=== PATIENT | female | born 1990 | race Caucasian/White ===

== ENCOUNTER 2017-01-03 10:51 | Outpatient (CLI) | payer OTHER | END 2017-01-03 10:52 | disposition home or self-care (01) | DX: E04.1 Nontoxic single thyroid nodule (principal); R63.1 Polydipsia ==

== ENCOUNTER 2019-07-14 09:52 | Emergency (ER) | payer OTHER ==
[2019-07-14 10:22] LABS: BILIRUBIN,URINE NEGATIVE (NEGATIVE); GLUCOSE, URINE (UA) NEGATIVE (NEGATIVE); KETONES,URINE (UA) TRACE mg/dL (NEGATIVE); LEUKOCYTE ESTERASE, URINE NEGATIVE (NEGATIVE); NITRITE,URINE NEGATIVE (NEGATIVE); OCCULT BLOOD,URINE TRACE-LYSE (NEGATIVE); PROTEIN,URINE NEGATIVE (NEGATIVE); UROBILINOGEN,URINE 0.2 (NORMAL) E.U./dL (NORMAL)
[2019-07-14 10:25] LABS: CLARITY,URINE CLEAR (CLEAR); HCG UR QUAL NEGATIVE
[2019-07-14 11:02] LABS: BASOPHILS # (AUTO) 0.1 10^3/uL (0.0-0.1); BASOPHILS % (AUTO) 0.3 %; EOSINOPHILS % (AUTO) 0.1 %; HGB - HEMOGLOBIN 13.1 g/dL (12.0-16.0); LYMPHOCYTES # (AUTO) 0.7 10^3/uL (1.5-3.5); LYMPHOCYTES % (AUTO) 3.7 %; MEAN CORPUSCULAR HEMOGLOBIN 29.1 pg (27.0-31.0); MEAN CORPUSCULAR HGB CONC 33.6 g/dL (32.0-36.0); MEAN CORPUSCULAR VOLUME 86.7 fL (81.0-99.0); MEAN PLATELET VOLUME 9.9 fL (7.9-10.8); MONOCYTES # (AUTO) 0.6 10^3/uL (0.0-1.0); MONOCYTES % (AUTO) 3.2 %; NEUTROPHILS # (AUTO) 18.3 10^3/uL (1.5-6.6); NEUTROPHILS % (AUTO) 91.9 %; PLT - PLATELET COUNT 208 10^3/uL (130-450); RED CELL DISTRIBUTION WIDTH 12.2 % (12.0-15.0); WHITE BLOOD COUNT 19.8 x10^3/uL (4.8-10.8)
[2019-07-14 11:16] LABS: ALBUMIN 4.8 g/dL (3.2-5.5); ALBUMIN/GLOBULIN RATIO 1.5 (1.0-2.2); BILIRUBIN,TOTAL 1.2 mg/dL (0.2-1.0); CALCIUM 9.6 mg/dL (8.5-10.3); CREATININE 1.1 mg/dL (0.4-1.0); TOTAL PROTEIN 8.1 g/dL (6.7-8.2)
--- NOTE | 2019-07-14 11:28 | ED Physician Documentation ---
PD HPI ABD PAIN - Stated complaint Stated Complaint: SIDE PX/VOMITING - Chief complaint Chief Complaint: Abd Pain - History obtained from History obtained from: Patient - History of Present Illness Timing - onset: Last night Timing - duration: Hours Timing - details: Abrupt onset, Still present Quality: Cramping, Aching, Pain Location: Epigastric, Periumbilical Radiation: Upper back. No: Chest Improved by: No: Vomiting Worsened by: Eating (tried to take water, with worse symptoms) Associated symptoms: Nausea, Vomiting, Diarrhea (loose but not diarrhea). No: Fever, Dysuria, Hematuria, Chest pain Similar symptoms before: Has not had sx before Recently seen: Not recently seen Review of Systems Constitutional: reports: Myalgias. denies: Fever, Chills Nose: denies: Rhinorrhea / runny nose, Congestion Throat: denies: Sore throat Respiratory: denies: Cough GI: reports: Abdominal Pain, Nausea, Vomiting (multiple times), Diarrhea (loose but not diarrhea). denies: Abdominal Swelling, Constipation, Hematemesis, Bloody / black stool : denies: Dysuria, Frequency Musculoskeletal: denies: Neck pain, Back pain Neurologic: reports: Generalized weakness. denies: Focal weakness, Numbness, Altered mental status, Headache PD PAST MEDICAL HISTORY - Past Medical History Cardiovascular: None Respiratory: None Neuro: None Endocrine/Autoimmune: None - Past Surgical History Past Surgical History: Yes Ortho: Knee replacement - Present Medications Home Medications: Ambulatory Orders Medication Instructions Recorded Confirmed Hydrocodone/Acetaminophen [[place] 1 each PO Q6H PRN #12 tablet 07/14/19 5-325 Tablet] Ondansetron Odt [Zofran] 4 mg TL Q6H PRN #10 tablet 07/14/19 - Allergies Allergies/Adverse Reactions: Allergies Allergy/AdvReac Type Severity Reaction Status Date / Time No Known Drug Allergies Allergy Verified 07/14/19 09:54 - Social History Does the pt smoke?: No Smoking Status: Never smoker Does the pt drink ETOH?: No Does the pt have substance abuse?: No - POLST Patient has POLST: No PD ED PE NORMAL - Vitals Vital signs reviewed: Yes - General General: Alert and oriented X 3, Well developed/nourished, Other (appears very uncomfortable, with active vomiting. Pain mid to upper abd. ) - HEENT HEENT: Moist mucous membranes, Pharynx benign - Neck Neck: Supple, no meningeal sign, No adenopathy - Cardiac Cardiac: RRR, No murmur - Respiratory Respiratory: Clear bilaterally - Abdomen Abdomen: Soft, Non distended, No organomegaly, Other (tender epigastric to mid abd with guarding and some percussion tenderness. Bowel sounds diminished. ). No: Normal bowel sounds - Female Female : Deferred - Rectal Rectal: Deferred - Back Back: No CVA TTP - Derm Derm: Warm and dry. No: Normal color (pale) - Extremities Extremities: No tenderness to palpate, Normal ROM s pain - Neuro Neuro: Alert and oriented X 3, No motor deficit, Normal speech Eye Opening: Spontaneous Motor: Obeys Commands Verbal: Oriented GCS Score: 15 Results - Vitals Vitals: Vital Signs - 24 hr 07/14/19 07/14/19 09:55 13:23 Temperature 37.8 C H Heart Rate 94 87 Respiratory 15 16 Rate Blood Pressure 102/66 108/62 O2 Saturation 100 98 Oxygen O2 Source Room air - Labs Labs: Laboratory Tests 07/14/19 07/14/19 07/14/19 10:15 10:15 10:55 WBC 19.8 H RBC 4.50 Hgb 13.1 Hct 39.0 MCV 86.7 MCH 29.1 MCHC 33.6 RDW 12.2 Plt Count 208 MPV 9.9 Neut # (Auto) 18.3 H Lymph # (Auto) 0.7 L [place] # (Auto) 0.6 Eos # (Auto) 0.0 Baso # (Auto) 0.1 Absolute Nucleated RBC 0.00 Nucleated RBC % 0.0 Sodium Potassium Chloride Carbon Dioxide Anion Gap BUN Creatinine Estimated GFR (MDRD) Glucose Lactic Acid Calcium Total Bilirubin AST ALT Alkaline Phosphatase Total Protein Albumin Globulin Albumin/Globulin Ratio Lipase Urine Color YELLOW Urine Clarity CLEAR Urine pH 6.0 Ur Specific [place] 1.010 Urine Protein NEGATIVE Urine Glucose (UA) NEGATIVE Urine Ketones TRACE Urine Occult Blood TRACE-LYSE Urine Nitrite NEGATIVE Urine Bilirubin NEGATIVE Urine Urobilinogen 0.2 (NORMAL) Ur Leukocyte Esterase NEGATIVE Ur Microscopic Review NOT INDICATED Urine Culture Comments NOT INDICATED Urine HCG, Qual NEGATIVE Urine Opiates Screen NEGATIVE Ur Oxycodone Screen NEGATIVE Urine Methadone Screen NEGATIVE Ur Propoxyphene Screen NEGATIVE Ur Barbiturates Screen NEGATIVE Ur Tricyclics Screen NEGATIVE Ur Phencyclidine Scrn NEGATIVE Ur Amphetamine Screen NEGATIVE U Methamphetamines Scrn NEGATIVE U Benzodiazepines Scrn NEGATIVE Urine Cocaine Screen NEGATIVE U Cannabinoids Screen NEGATIVE 07/14/19 07/14/19 10:55 12:20 WBC RBC Hgb Hct MCV MCH MCHC RDW Plt Count MPV Neut # (Auto) Lymph # (Auto) [place] # (Auto) Eos # (Auto) Baso # (Auto) Absolute Nucleated RBC Nucleated RBC % Sodium 136 Potassium 3.4 L Chloride 101 Carbon Dioxide 24 Anion Gap 11.0 BUN 16 Creatinine 1.1 H Estimated GFR (MDRD) 60 L Glucose 129 H Lactic Acid 1.3 Calcium 9.6 Total Bilirubin 1.2 H AST 19 ALT 16 Alkaline Phosphatase 48 Total Protein 8.1 Albumin 4.8 Globulin 3.3 Albumin/Globulin Ratio 1.5 Lipase 25 Urine Color Urine Clarity Urine pH Ur Specific [place] Urine Protein Urine Glucose (UA) Urine Ketones Urine Occult Blood Urine Nitrite Urine Bilirubin Urine Urobilinogen Ur Leukocyte Esterase Ur Microscopic Review Urine Culture Comments Urine HCG, Qual Urine Opiates Screen Ur Oxycodone Screen Urine Methadone Screen Ur Propoxyphene Screen Ur Barbiturates Screen Ur Tricyclics Screen Ur Phencyclidine Scrn Ur Amphetamine Screen U Methamphetamines Scrn U Benzodiazepines Scrn Urine Cocaine Screen U Cannabinoids Screen - Rads (name of study) abd/pelvic CT Radiology: Prelim report reviewed ( CT without acute process. ), See rad report PD MEDICAL DECISION MAKING - ED course Complexity details: reviewed results (seems acute abd with mid abd tender and vomiting. No hernia felt. Got CT to eval for acute process.), re-evaluated patient (improved with IV fluids and meds. ), considered differential (consider viral GE, food poisoning, but with such pain and vomiting, could also consider obstruction, intusscesception, hernia, etc. ) Departure - Departure Disposition: 01 Home, Self Care Clinical Impression: Nausea and vomiting Qualifiers: Vomiting type: unspecified Vomiting Intractability: intractable Qualified Code(s): R11.2 - Nausea with vomiting, unspecified Abdominal pain Qualifiers: Abdominal location: generalized Qualified Code(s): R10.84 - Generalized abdominal pain Condition: Stable Record reviewed to determine appropriate education?: Yes Instructions: ED Nausea Vomiting Follow-Up: Cristina Pedersen DO [Primary Care Provider] - Prescriptions: Hydrocodone/Acetaminophen [[place] 5-325 Tablet] 1 each PO Q6H PRN #12 tablet PRN Reason: Pain Ondansetron Odt [Zofran] 4 mg TL Q6H PRN #10 tablet PRN Reason: Nausea / Vomiting Comments: No signs of acute focused infection on your CT scan. I presume this is then more of a viral gastroenteritis at this point. Small frequent fluids. Ondansetron if needed for nausea. Add pain medicine if needed for pains and diarrhea. [place] food initially today and progress as tolerated. Off work today and possibly tomorrow. Recheck if not improved over the next couple of days. Forms: Activity restrictions Discharge Date/Time: 07/14/19 14:11
[2019-07-14] MEDS ORDERED: SODIUM CHLORIDE 0.9% 1,000 ML IV ONE ×2 (11:35→11:36)
[2019-07-14] MEDS ORDERED: ONDANSETRON 4 MG/2 ML VIAL IVP STA (11:35)
[2019-07-14] MEDS ORDERED: HYDROmorphone 1 MG/ML CARPUJECT IVP STA (11:35)
[2019-07-14] MEDS ORDERED: IOVERSOL 320 100 ML VIAL IVP ONE ×2 (11:49→16:07)
[2019-07-14 11:55] LABS: MUDS CUTOFF CONCENTRATIONS CUTOFF CONC BELOW:
--- NOTE | 2019-07-14 12:16 | CT Report ---
Reason: mid abd pain and vomiting since last evening Procedure Date: 07/14/2019 Accession Number: [id number] / [id number] Procedure: CT - Abdomen/Pelvis W CPT Code: FULL RESULT: EXAM: CT ABDOMEN AND PELVIS EXAM DATE: 07/14/2019 12:01 PM. CLINICAL HISTORY: Mid abd pain and vomiting since last evening. COMPARISONS: ABDOMEN/PELVIS W/O 01/26/2014 11:58 AM. TECHNIQUE: Routine helical CT imaging was performed through the abdomen and pelvis. IV contrast: OPTI 320 100ML. Enteric contrast: No. Reconstructions: Coronal and sagittal. In accordance with CT protocol optimization, one or more of the following dose reduction techniques were utilized for this exam: automated exposure control, adjustment of mA and/or KV based on patient size, or use of iterative reconstructive technique. FINDINGS: Lung Bases: Unremarkable. Liver: Normal. No masses. Gallbladder/Bile Ducts: Unremarkable. Spleen: Normal. Pancreas: Normal. Adrenal Glands: Normal. Kidneys: Normal. No masses or hydronephrosis. Peritoneal Cavity/Bowel: Trace physiologic free fluid in cul-de-sac. No free air or adenopathy. No masses or acute inflammatory process. The appendix is well visualized and normal. Pelvic Organs: Normal. The bladder and visualized pelvic organs are within normal limits. Dominant 1.4 cm right ovarian follicle. Vasculature: No aneurysms or other significant abnormality. Bones: No significant abnormality. Other: None. IMPRESSION: Normal abdomen and pelvis CT. RADIA
[2019-07-14 12:17] LABS: AMPHETAMINE SCREEN,URINE NEGATIVE (NEGATIVE); BENZODIAZEPINES SCREEN, URINE NEGATIVE (NEGATIVE); COCAINE SCREEN URINE NEGATIVE (NEGATIVE); METHADONE SCREEN, URINE NEGATIVE (NEGATIVE); METHAMPHETAMINES SCREEN, URINE NEGATIVE (NEGATIVE); OPIATE SCREEN, URINE NEGATIVE (NEGATIVE); OXYCODONE SCREEN, URINE NEGATIVE (NEGATIVE); PROPOXYPHENE SCREEN, URINE NEGATIVE (NEGATIVE); TRICYCLIC ANTIDEPRESSANT,URINE NEGATIVE (NEGATIVE)
[2019-07-14] MEDS ORDERED: MAG HYDROX/AL HYDROX/SIMETH 30 ML UDC PO STA (13:06)
[2019-07-14] MEDS ORDERED: FAMOTIDINE 20 MG/2 ML VIAL IVP STA (13:07)
[2019-07-14 13:24] VITALS: BP 108/62
== END 2019-07-14 14:11 | disposition home or self-care (01) ==
LOC: ED 09:52
DX: R10.84 Generalized abdominal pain (principal); R11.2 Nausea with vomiting, unspecified; R53.1 Weakness
CPT/HCPCS: 36415; 74177; 80053; 81003; 81025; 83605; 83690; 85025; 96361; 96374; 96375; 99283; 99284; A9270; J1170; Q9967; 80306; 81001; 87086

== ENCOUNTER 2019-07-15 18:39 | Emergency (ER) | payer OTHER ==
[2019-07-15] MEDS ORDERED: METOCLOPRAMIDE 10 MG/2 ML VIAL IVP STA (18:50)
[2019-07-15] MEDS ORDERED: diphenhydrAMINE INJ 50 MG/ML VIAL IVP STA (18:50)
[2019-07-15] MEDS ORDERED: SODIUM CHLORIDE 0.9% 1,000 ML IV ONE (18:50)
--- NOTE | 2019-07-15 18:53 | ED Physician Documentation ---
History of Present Illness - Stated complaint Stated Complaint: VOMITING - History obtained from History obtained from: Patient, Family () - History of Present Illness Timing: Other (Starting 2 days ago she is had central nonradiating abdominal pain associated with vomiting. Pretty normal bowel movements per her. She was seen here yesterday. She had labs notable for white count of 19,000 ovarian follicle but otherwise negative with IV contrast. She was sent home with hydrocodone and Zofran. Since then she continues to vomit and have abdominal pain, she is had a gradual onset severe headache associated with light and sound sensitivity. She has no history of migraines. No sick contacts. 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.) Review of Systems Ten Systems: 10 systems reviewed and negative Constitutional: denies: Fever, Chills, Myalgias, Fatigue Nose: denies: Rhinorrhea / runny nose, Congestion Cardiac: denies: Chest pain / pressure, Palpitations Respiratory: denies: Dyspnea, Cough PD PAST MEDICAL HISTORY - Past Medical History Cardiovascular: None Respiratory: None Neuro: None Endocrine/Autoimmune: None - Past Surgical History Past Surgical History: Yes Ortho: Knee replacement - Present Medications Home Medications: Ambulatory Orders Medication Instructions Recorded Confirmed Hydrocodone/Acetaminophen [[place] 1 each PO Q6H PRN #12 tablet 07/14/19 5-325 Tablet] Ondansetron Odt [Zofran] 4 mg TL Q6H PRN #10 tablet 07/14/19 - Allergies Allergies/Adverse Reactions: Allergies Allergy/AdvReac Type Severity Reaction Status Date / Time No Known Drug Allergies Allergy Verified 07/14/19 09:54 - Social History Does the pt smoke?: No Smoking Status: Never smoker Does the pt drink ETOH?: No Does the pt have substance abuse?: No - POLST Patient has POLST: No PD ED PE NORMAL - Vitals Vital signs reviewed: Yes - General General: Alert and oriented X 3, Other (She appears uncomfortable and is crying) - HEENT HEENT: PERRL, EOMI - Neck Neck: Supple, no meningeal sign, No bony TTP - Cardiac Cardiac: RRR, No murmur - Respiratory Respiratory: No respiratory distress, Clear bilaterally - Abdomen Abdomen: Soft, Non tender - Neuro Neuro: Alert and oriented X 3, No motor deficit, No sensory deficit, Normal speech Eye Opening: Spontaneous Motor: Obeys Commands Verbal: Oriented GCS Score: 15 - Psych Psych: Normal mood, Normal affect Results - Vitals Vitals: Vital Signs - 24 hr 07/15/19 07/15/19 18:40 18:59 Temperature 36.4 C L Heart Rate 64 68 Respiratory 18 18 Rate Blood Pressure 116/76 110/70 O2 Saturation 100 100 Oxygen O2 Source Room air - Labs Labs: Laboratory Tests 07/15/19 07/15/19 19:15 19:15 WBC 17.1 H RBC 4.04 L Hgb 11.8 L Hct 35.0 L MCV 86.6 MCH 29.2 MCHC 33.7 RDW 12.4 Plt Count 184 MPV 10.1 Neut # (Auto) 14.6 H Lymph # (Auto) 1.4 L [place] # (Auto) 0.8 Eos # (Auto) 0.0 Baso # (Auto) 0.1 Absolute Nucleated RBC 0.00 Nucleated RBC % 0.0 Sodium 135 Potassium 3.3 L Chloride 99 L Carbon Dioxide 24 Anion Gap 12.0 BUN 14 Creatinine 1.1 H Estimated GFR (MDRD) 60 L Glucose 98 Calcium 9.1 Total Bilirubin 0.7 AST 19 ALT 16 Alkaline Phosphatase 47 Total Protein 7.1 Albumin 3.9 Globulin 3.2 Albumin/Globulin Ratio 1.2 Lipase 25 PD MEDICAL DECISION MAKING - ED course ED course: This is a young lady with abdominal pain and vomiting. Work-up yesterday was negative except for leukocytosis which is improved but not completely better today. Benign examination both on initial evaluation and on recheck at 9 PM she was symptom-free and no more headache. She was nontender and had passed p.o. challenge. Close watchful waiting was advised. Departure - Departure Disposition: 01 Home, Self Care Clinical Impression: Abdominal pain Qualifiers: Abdominal location: epigastric Qualified Code(s): R10.13 - Epigastric pain Condition: Good Record reviewed to determine appropriate education?: Yes Instructions: Abdominal Pain Comments: Return in 24 hours if not better, anytime for new or worsening symptoms. Return immediately if you run a fever or have severe pain.
[2019-07-15 19:27] LABS: BASOPHILS # (AUTO) 0.1 10^3/uL (0.0-0.1); BASOPHILS % (AUTO) 0.3 %; EOSINOPHILS % (AUTO) 0.1 %; HGB - HEMOGLOBIN 11.8 g/dL (12.0-16.0); LYMPHOCYTES # (AUTO) 1.4 10^3/uL (1.5-3.5); MEAN CORPUSCULAR HEMOGLOBIN 29.2 pg (27.0-31.0); MEAN CORPUSCULAR HGB CONC 33.7 g/dL (32.0-36.0); MEAN CORPUSCULAR VOLUME 86.6 fL (81.0-99.0); MEAN PLATELET VOLUME 10.1 fL (7.9-10.8); MONOCYTES # (AUTO) 0.8 10^3/uL (0.0-1.0); MONOCYTES % (AUTO) 4.8 %; NEUTROPHILS # (AUTO) 14.6 10^3/uL (1.5-6.6); NEUTROPHILS % (AUTO) 85.9 %; PLT - PLATELET COUNT 184 10^3/uL (130-450); RED BLOOD COUNT 4.04 10^6/uL (4.20-5.40); RED CELL DISTRIBUTION WIDTH 12.4 % (12.0-15.0); WHITE BLOOD COUNT 17.1 x10^3/uL (4.8-10.8)
[2019-07-15] MEDS ORDERED: ONDANSETRON 4 MG/2 ML VIAL IVP STA (19:27)
[2019-07-15 19:50] LABS: ALBUMIN 3.9 g/dL (3.2-5.5); ALBUMIN/GLOBULIN RATIO 1.2 (1.0-2.2); BILIRUBIN,TOTAL 0.7 mg/dL (0.2-1.0); CALCIUM 9.1 mg/dL (8.5-10.3); CREATININE 1.1 mg/dL (0.4-1.0); TOTAL PROTEIN 7.1 g/dL (6.7-8.2)
[2019-07-15 21:17] VITALS: BP 123/82
== END 2019-07-15 21:30 | disposition home or self-care (01) ==
LOC: ED 18:39
DX: R10.13 Epigastric pain (principal); R11.10 Vomiting, unspecified; R51 Headache; D72.829 Elevated white blood cell count, unspecified
CPT/HCPCS: 36415; 80053; 83690; 85025; 96374; 96375; 99283; 99284; J1200; J2765

== ENCOUNTER 2019-08-11 11:25 | Emergency (ER) | payer OTHER ==
--- NOTE | 2019-08-11 11:55 | ED Physician Documentation ---
History of Present Illness - Stated complaint Stated Complaint: VOMITING - Chief complaint Chief Complaint: Abd Pain - Additonal information Additional information: This is a 29-year-old female with history of UTIs who presents with vomiting for 2 days. Patient states that she is had some diffuse and mild abdominal discomfort, and she is had multiple episodes of vomiting unable to hold any down for several days. This happened in the past and she is been variously told that she had a UTI, though they could not figure out what was going on, was may be related to a migraine. She typically does not get headaches, and states that she only has a mild on right now. 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 : Chronic bladder infection HEENT: None Psych: Anxiety Musculoskeletal: None Derm: None - Past Surgical History Past Surgical History: Yes Ortho: Knee replacement - Present Medications Home Medications: Ambulatory Orders Medication Instructions Recorded Confirmed Hydrocodone/Acetaminophen [[place] 1 each PO Q6H PRN #12 tablet 07/14/19 5-325 Tablet] Ondansetron Odt [Zofran] 4 mg TL Q6H PRN #10 tablet 07/14/19 Ondansetron Odt [Zofran] 4 mg TL Q6H PRN #10 tablet 08/11/19 - Allergies Allergies/Adverse Reactions: Allergies Allergy/AdvReac Type Severity Reaction Status Date / Time No Known Drug Allergies Allergy Verified 08/11/19 11:31 - Social History Does the pt smoke?: No Smoking Status: Never smoker Does the pt drink ETOH?: No Does the pt have substance abuse?: No - Immunizations Immunizations are current?: Yes - POLST Patient has POLST: No PD ED PE NORMAL - Vitals Vital signs reviewed: Yes - General General: Alert and oriented X 3, No acute distress - HEENT HEENT: PERRL - Neck Neck: Supple, no meningeal sign - Cardiac Cardiac: RRR, No murmur - Respiratory Respiratory: Clear bilaterally - Abdomen Abdomen: Normal bowel sounds, Soft, Non tender, Non distended - Derm Derm: Warm and dry - Extremities Extremities: No deformity - Neuro Neuro: Alert and oriented X 3 - Psych Psych: Normal mood, Normal affect Results - Vitals Vitals: Vital Signs - 24 hr 08/11/19 08/11/19 11:29 11:46 Temperature 37.1 C 37.8 C H Heart Rate 105 H 96 Respiratory 20 20 Rate Blood Pressure 121/77 117/71 O2 Saturation 97 98 Oxygen O2 Source Room air - Labs Labs: Laboratory Tests 08/11/19 08/11/19 08/11/19 12:10 12:20 12:20 WBC 10.4 RBC 3.98 L Hgb 11.8 L Hct 34.5 L MCV 86.7 MCH 29.6 MCHC 34.2 RDW 12.8 Plt Count 150 MPV 9.7 Neut # (Auto) 7.6 H Lymph # (Auto) 1.7 [place] # (Auto) 0.8 Eos # (Auto) 0.2 Baso # (Auto) 0.0 Absolute Nucleated RBC 0.00 Nucleated RBC % 0.0 Sodium 132 L Potassium 3.3 L Chloride 97 L Carbon Dioxide 22 Anion Gap 13.0 BUN 13 Creatinine 1.0 Estimated GFR (MDRD) 67 L Glucose 90 Calcium 8.8 Total Bilirubin 1.0 AST 16 ALT 13 Alkaline Phosphatase 47 Total Protein 7.7 Albumin 4.1 Globulin 3.6 Albumin/Globulin Ratio 1.1 Lipase 26 Urine Color YELLOW Urine Clarity HAZY Urine pH 6.0 Ur Specific [place] 1.025 Urine Protein 30 H Urine Glucose (UA) NEGATIVE Urine Ketones >=80 H Urine Occult Blood MODERATE H Urine Nitrite NEGATIVE Urine Bilirubin NEGATIVE Urine Urobilinogen 0.2 (NORMAL) Ur Leukocyte Esterase NEGATIVE Urine RBC 6-10 H Urine WBC 0-3 Ur Squamous Epith Cells MANY Squamous H Urine Bacteria Few Ur Microscopic Review INDICATED Urine Culture Comments NOT INDICATED Urine HCG, Qual NEGATIVE PD MEDICAL DECISION MAKING - ED course Complexity details: considered differential (Urinary tract infection, pyelonephritis, electolyte abnormality, dehydration, cannabinoid hyperemesis syndrome, gastritis, pancreatitis) ED course: Patient is nontoxic-appearing on arrival. Labs are concerning for dehydration with hypochloremia, hyponatremia, and ketones in urine. There are no sign of urinary tract infection. HCG negative. Lipase is negative. Patient has mild hypokalemia, this is repleted with a liter of lactated Ringer's, as well as oral potassium.She was given Zofran and afterwards was able to tolerate p.o. fluids. She has no abdominal tenderness on exam. I discussed the results with the patient, I explained that I do not see an obvious cause of her nausea and vomiting, however given her symptoms it is possible that she has a viral syndrome. On repeat examination she continues to have a benign abdomen with no tenderness whatsoever, Making acute abdominal pathology unlikely. She has a normal neurologic exam, and intracranial pathology as a cause of her vomiting is highly unlikely. She has been seen in the past for similar episodes without a clear explanation for her symptoms, and she denies marijuana use making Cannabinoid hyperemesis unlikely. I recommended close follow-up with her primary care provider, as well as return to the emergency department if she has continued vomiting despite the Zofran, abdominal pain, or any worsening symptoms. Patient agreed and was discharged in the care of her with Zofran prescribed. Departure - Departure Disposition: 01 Home, Self Care Clinical Impression: Vomiting Qualifiers: Vomiting type: unspecified Vomiting Intractability: non-intractable Nausea presence: with nausea Qualified Code(s): R11.2 - Nausea with vomiting, unspecified Condition: Good Instructions: ED Nausea Vomiting Follow-Up: Cristina Pedersen DO [Primary Care Provider] - Within 1 week Prescriptions: Ondansetron Odt [Zofran] 4 mg TL Q6H PRN #10 tablet PRN Reason: Nausea / Vomiting Comments: You were seen today for nausea and vomiting. You appear somewhat dehydrated, and your potassium was a little bit low. Your vomiting may be from a viral infection, we do not see a sign of a bacterial infection/urinary tract infection on your labs today. You may take the Zofran to manage your nausea and vomiting, if you are having persistent vomiting despite the Zofran, or any other concerning symptoms such as Abdominal pain, particularly if it settles in your right upper abdomen or right lower abdomen, please return to the emergency department. Otherwise please follow-up with your primary care provider
[2019-08-11 12:27] LABS: BASOPHILS % (AUTO) 0.3 %; EOSINOPHILS # (AUTO) 0.2 10^3/uL (0.0-0.7); EOSINOPHILS % (AUTO) 2.3 %; HGB - HEMOGLOBIN 11.8 g/dL (12.0-16.0); LYMPHOCYTES # (AUTO) 1.7 10^3/uL (1.5-3.5); LYMPHOCYTES % (AUTO) 16.2 %; MEAN CORPUSCULAR HEMOGLOBIN 29.6 pg (27.0-31.0); MEAN CORPUSCULAR HGB CONC 34.2 g/dL (32.0-36.0); MEAN CORPUSCULAR VOLUME 86.7 fL (81.0-99.0); MEAN PLATELET VOLUME 9.7 fL (7.9-10.8); MONOCYTES # (AUTO) 0.8 10^3/uL (0.0-1.0); MONOCYTES % (AUTO) 7.7 %; NEUTROPHILS # (AUTO) 7.6 10^3/uL (1.5-6.6); NEUTROPHILS % (AUTO) 73.1 %; PLT - PLATELET COUNT 150 10^3/uL (130-450); RED BLOOD COUNT 3.98 10^6/uL (4.20-5.40); RED CELL DISTRIBUTION WIDTH 12.8 % (12.0-15.0); WHITE BLOOD COUNT 10.4 x10^3/uL (4.8-10.8)
[2019-08-11 12:34] LABS: GLUCOSE, URINE (UA) NEGATIVE (NEGATIVE); KETONES,URINE (UA) >=80 mg/dL (NEGATIVE); LEUKOCYTE ESTERASE, URINE NEGATIVE (NEGATIVE); NITRITE,URINE NEGATIVE (NEGATIVE); OCCULT BLOOD,URINE MODERATE (NEGATIVE); PROTEIN,URINE 30 mg/dL (NEGATIVE); UROBILINOGEN,URINE 0.2 (NORMAL) E.U./dL (NORMAL)
[2019-08-11 12:39] LABS: ALBUMIN 4.1 g/dL (3.2-5.5); ALBUMIN/GLOBULIN RATIO 1.1 (1.0-2.2); CALCIUM 8.8 mg/dL (8.5-10.3); TOTAL PROTEIN 7.7 g/dL (6.7-8.2)
[2019-08-11] MEDS ORDERED: ONDANSETRON 4 MG/2 ML VIAL IVP STA (12:39)
[2019-08-11 12:43] LABS: BILIRUBIN,URINE NEGATIVE (NEGATIVE); CLARITY,URINE HAZY (CLEAR); HCG UR QUAL NEGATIVE; ICTOTEST,URINE NEGATIVE
[2019-08-11] MEDS ORDERED: LACTATED RINGERS 1,000 ML IV STA (12:56)
[2019-08-11 13:00] LABS: BACTERIA,URINE Few /HPF (None Seen); SQUAMOUS EPITHELIAL CELL,UR MANY Squamous (<= Few)
[2019-08-11] MEDS ORDERED: POTASSIUM CHLORIDE 20 MEQ TABLET PO STA (13:21)
[2019-08-11] MEDS ORDERED: KETOROLAC 30 MG/ML VIAL IVP STA (13:29)
[2019-08-11 14:29] VITALS: BP 103/49
== END 2019-08-11 14:28 | disposition home or self-care (01) ==
LOC: ED 11:25
DX: R11.2 Nausea with vomiting, unspecified (principal); E87.6 Hypokalemia
CPT/HCPCS: 36415; 80053; 81001; 81025; 83690; 85025; 96361; 96374; 96375; 99283; 99284; A9270; J7120; 81003; 87086

== ENCOUNTER 2020-02-27 14:26 | Emergency (ER) | payer OTHER ==
[2020-02-27] MEDS ORDERED: PROMETHAZINE INJ 25 MG in SODIUM CHLORIDE 0.9% 50 ML IV STA (14:52)
[2020-02-27] MEDS ORDERED: SODIUM CHLORIDE 0.9% 1,000 ML IV STA (14:52)
--- NOTE | 2020-02-27 14:54 | ED Physician Documentation ---
PD HPI NVD - Stated complaint Stated Complaint: N/V, SHAKES, CRAMPING - Chief complaint Chief Complaint: Abd Pain - History obtained from History obtained from: Patient (30-year-old woman, G2 at about 6 weeks gestation has had about a week of severe vomiting, stomach cramps. No associated fluid loss or bleeding. She is feeling very anxious with all this. Note made that she has had troubles with vomiting and pyelonephritis before and does not react well to metoclopramide. She tried Zofran at home which was unhelpful.) Review of Systems Ten Systems: 10 systems reviewed and negative Constitutional: reports: Sweats. denies: Fever, Chills GI: reports: Abdominal Pain, Nausea, Vomiting. 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 : Chronic bladder infection HEENT: None Psych: Anxiety Musculoskeletal: None Derm: None - Past Surgical History Past Surgical History: Yes Ortho: Knee replacement - Present Medications Home Medications: Ambulatory Orders Medication Instructions Recorded Confirmed Hydrocodone/Acetaminophen [[place] 1 each PO Q6H PRN #12 tablet 07/14/19 5-325 Tablet] Ondansetron Odt [Zofran] 4 mg TL Q6H PRN #10 tablet 07/14/19 Ondansetron Odt [Zofran] 4 mg TL Q6H PRN #10 tablet 08/11/19 Promethazine [Phenergan] 25 mg PO Q6H PRN #20 tab 02/27/20 - Allergies Allergies/Adverse Reactions: Allergies Allergy/AdvReac Type Severity Reaction Status Date / Time No Known Drug Allergies Allergy Verified 08/11/19 11:31 - Social History Does the pt smoke?: No Smoking Status: Never smoker Does the pt drink ETOH?: No Does the pt have substance abuse?: No - Immunizations Immunizations are current?: Yes - POLST Patient has POLST: No PD ED PE NORMAL - Vitals Vital signs reviewed: Yes - General General: Alert and oriented X 3, Other (Anxious) - HEENT HEENT: Other (Dry mucous membranes) - Neck Neck: Supple, no meningeal sign, No bony TTP - Abdomen Abdomen: Normal bowel sounds, Soft, Non tender, Other (I am unable to visualize an IUP other than a gestational sac on bedside ultrasound, no free fluid) - Derm Derm: Normal color, Warm and dry - Neuro Neuro: Alert and oriented X 3, Normal speech Results - Vitals Vitals: Vital Signs - 24 hr 02/27/20 02/27/20 02/27/20 14:34 14:38 15:41 Temperature 36.8 C 36.8 C Heart Rate 92 90 Respiratory 18 16 Rate Blood Pressure 121/98 H 132/78 H O2 Saturation 99 99 Oxygen O2 Source Room air - Labs Labs: Laboratory Tests 02/27/20 02/27/20 02/27/20 15:01 15:01 15:03 WBC 12.8 H RBC 4.34 Hgb 13.1 Hct 38.0 MCV 87.6 MCH 30.2 MCHC 34.5 RDW 12.4 Plt Count 252 MPV 9.9 Neut # (Auto) 11.1 H Lymph # (Auto) 1.3 L [place] # (Auto) 0.3 Eos # (Auto) 0.0 Baso # (Auto) 0.1 Absolute Nucleated RBC 0.00 Nucleated RBC % 0.0 Sodium 135 Potassium 3.0 L Chloride 100 L Carbon Dioxide 20 L Anion Gap 15.0 H BUN 17 Creatinine 1.0 Estimated GFR (MDRD) 66 L Glucose 116 H Calcium 9.5 Total Bilirubin 1.3 H AST 42 ALT 67 H Alkaline Phosphatase 43 Total Protein 8.1 Albumin 4.6 Globulin 3.5 Albumin/Globulin Ratio 1.3 Lipase 23 Urine Color YELLOW Urine Clarity CLEAR Urine pH 5.5 Ur Specific [place] 1.025 Urine Protein 30 H Urine Glucose (UA) NEGATIVE Urine Ketones >=80 H Urine Occult Blood TRACE-INTA Urine Nitrite NEGATIVE Urine Bilirubin NEGATIVE Urine Urobilinogen 0.2 (NORMAL) Ur Leukocyte Esterase NEGATIVE Urine RBC 0-5 Urine WBC 0-3 Ur Squamous Epith Cells MOD Squamous H Urine Bacteria None Seen Ur Microscopic Review INDICATED Urine Culture Comments NOT INDICATED PD MEDICAL DECISION MAKING - ED course ED course: 30-year-old woman presents with hyperemesis gravidarum. Some evidence of dehydration with dry lips and hypokalemia with modest acidosis. Feeling much better after Phenergan and saline. Phenergan was chosen because there was a large anxiety component to. This helped with both. Departure - Departure Clinical Impression: Dehydration, Hyperemesis gravidarum Condition: Good Record reviewed to determine appropriate education?: Yes Instructions: Hyperemesis Prescriptions: Promethazine [Phenergan] 25 mg PO Q6H PRN #20 tab PRN Reason: Nausea / Vomiting Comments: Call your doctor to arrange a follow-up appointment, make the next available appointment. In the interim, return anytime if worse or if new symptoms develop.
[2020-02-27 15:10] LABS: BASOPHILS # (AUTO) 0.1 10^3/uL (0.0-0.1); BASOPHILS % (AUTO) 0.4 %; HGB - HEMOGLOBIN 13.1 g/dL (12.0-16.0); LYMPHOCYTES # (AUTO) 1.3 10^3/uL (1.5-3.5); LYMPHOCYTES % (AUTO) 9.8 %; MEAN CORPUSCULAR HEMOGLOBIN 30.2 pg (27.0-31.0); MEAN CORPUSCULAR HGB CONC 34.5 g/dL (32.0-36.0); MEAN CORPUSCULAR VOLUME 87.6 fL (81.0-99.0); MEAN PLATELET VOLUME 9.9 fL (7.9-10.8); MONOCYTES # (AUTO) 0.3 10^3/uL (0.0-1.0); MONOCYTES % (AUTO) 2.7 %; NEUTROPHILS # (AUTO) 11.1 10^3/uL (1.5-6.6); NEUTROPHILS % (AUTO) 86.7 %; PLT - PLATELET COUNT 252 10^3/uL (130-450); RED BLOOD COUNT 4.34 10^6/uL (4.20-5.40); RED CELL DISTRIBUTION WIDTH 12.4 % (12.0-15.0); WHITE BLOOD COUNT 12.8 x10^3/uL (4.8-10.8)
[2020-02-27 15:17] LABS: BILIRUBIN,URINE NEGATIVE (NEGATIVE); GLUCOSE, URINE (UA) NEGATIVE (NEGATIVE); KETONES,URINE (UA) >=80 mg/dL (NEGATIVE); LEUKOCYTE ESTERASE, URINE NEGATIVE (NEGATIVE); NITRITE,URINE NEGATIVE (NEGATIVE); OCCULT BLOOD,URINE TRACE-INTA (NEGATIVE); PH,URINE 5.5 PH (5.0-7.5); PROTEIN,URINE 30 mg/dL (NEGATIVE); UROBILINOGEN,URINE 0.2 (NORMAL) E.U./dL (NORMAL)
[2020-02-27 15:19] LABS: CLARITY,URINE CLEAR (CLEAR)
[2020-02-27 15:25] LABS: BACTERIA,URINE None Seen /HPF (None Seen); RBC,URINE 0-5 /HPF (0-5); SQUAMOUS EPITHELIAL CELL,UR MOD Squamous (<= Few)
[2020-02-27 15:26] LABS: ALBUMIN 4.6 g/dL (3.2-5.5); ALBUMIN/GLOBULIN RATIO 1.3 (1.0-2.2); BILIRUBIN,TOTAL 1.3 mg/dL (0.2-1.0); CALCIUM 9.5 mg/dL (8.5-10.3); TOTAL PROTEIN 8.1 g/dL (6.7-8.2)
[2020-02-27] MEDS ORDERED: POTASSIUM CHLORIDE 20 MEQ TABLET PO STA (15:33)
[2020-02-27 17:16] VITALS: BP 112/62
== END 2020-02-27 17:16 | disposition home or self-care (01) ==
LOC: ED 14:26
DX: O21.1 Hyperemesis gravidarum with metabolic disturbance (principal); O99.341 Other mental disorders complicating pregnancy, first trimester; Z3A.01 Less than 8 weeks gestation of pregnancy
CPT/HCPCS: 36415; 80053; 81001; 83690; 85025; 96365; 96366; 99284; A9270; J7040; 81003; 87086

== ENCOUNTER 2020-02-29 23:57 | Observation (INO) | payer OTHER ==
[2020-03-01 00:21] LABS: BASOPHILS % (AUTO) 0.4 %; EOSINOPHILS # (AUTO) 0.1 10^3/uL (0.0-0.7); EOSINOPHILS % (AUTO) 0.9 %; HGB - HEMOGLOBIN 12.7 g/dL (12.0-16.0); LYMPHOCYTES # (AUTO) 3.1 10^3/uL (1.5-3.5); LYMPHOCYTES % (AUTO) 29.8 %; MEAN CORPUSCULAR HEMOGLOBIN 30.1 pg (27.0-31.0); MEAN CORPUSCULAR HGB CONC 35.6 g/dL (32.0-36.0); MEAN CORPUSCULAR VOLUME 84.6 fL (81.0-99.0); MEAN PLATELET VOLUME 9.7 fL (7.9-10.8); MONOCYTES # (AUTO) 0.7 10^3/uL (0.0-1.0); MONOCYTES % (AUTO) 7.1 %; NEUTROPHILS # (AUTO) 6.4 10^3/uL (1.5-6.6); NEUTROPHILS % (AUTO) 61.4 %; PLT - PLATELET COUNT 235 10^3/uL (130-450); RED BLOOD COUNT 4.22 10^6/uL (4.20-5.40); RED CELL DISTRIBUTION WIDTH 12.2 % (12.0-15.0); WHITE BLOOD COUNT 10.4 x10^3/uL (4.8-10.8)
[2020-03-01 00:34] LABS: ALBUMIN/GLOBULIN RATIO 1.8 (1.0-2.2); BILIRUBIN,TOTAL 1.6 mg/dL (0.2-1.0); CALCIUM 9.6 mg/dL (8.5-10.3); TOTAL PROTEIN 7.8 g/dL (6.7-8.2)
--- NOTE | 2020-03-01 00:56 | ED Physician Documentation ---
PD HPI FEMALE - Stated complaint Stated Complaint: FEM - Chief complaint Chief Complaint: Abd Pain - History obtained from History obtained from: Patient - History of Present Illness Timing - onset: How many days ago (3-4) Timing - details: Intermittant Pain level max: 4 Pain level max: 0 Associated symptoms: Dysuria, Urinary frequency. 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 She says she continues to have nausea and vomiting, anxiety. She says she took a dose of the prescribed antinauseant and had a reaction to it that was reminiscent of when she had reglan in the past (the rx was phenergan, and she apparently tolerated it in the ED). She does have zofran at home but this has not controlled her n/v. She also has diarrhea, urinary frequency, burning dysuria, and intermittent suprapubic cramping pressure. Review of Systems Constitutional: denies: Fever Cardiac: reports: Reviewed and negative Respiratory: reports: Reviewed and negative GI: reports: Nausea, Vomiting, Diarrhea. denies: Abdominal Pain (suprapubic c ramping but not abdominal pain per se) : reports: Dysuria, Frequency, Now EGA (6 weeks) Musculoskeletal: denies: Neck pain, Back pain PD PAST MEDICAL HISTORY - Past Medical History Past Medical History: Yes Cardiovascular: None Respiratory: Asthma Neuro: None Endocrine/Autoimmune: None GI: None [employer] SCI[employer] TE[employer]ER: None : Chronic bladder infection HEENT: None Psych: Anxiety Musculoskeletal: None Derm: None - Past Surgical History Past Surgical History: Yes Ortho: Knee replacement - Present Medications Home Medications: Ambulatory Orders Medication Instructions Recorded Confirmed Ondansetron Odt [Zofran] 4 mg TL Q6H PRN #10 tablet 08/11/19 03/01/20 - Allergies Allergies/Adverse Reactions: Allergies Allergy/AdvReac Type Severity Reaction Status Date / Time No Known Drug Allergies Allergy Verified 03/01/20 00:00 - Social History Does the pt smoke?: No Smoking Status: Never smoker Does the pt drink ETOH?: No Does the pt have substance abuse?: No - Immunizations Immunizations are current?: Yes - POLST Patient has POLST: No PD ED PE NORMAL - Vitals Vital signs reviewed: Yes - General General: Alert and oriented X 3, Well developed/nourished, Other (appears anxious) - HEENT HEENT: Moist mucous membranes - Neck Neck: Supple, no meningeal sign - Cardiac Cardiac: RRR, No murmur - Respiratory Respiratory: No respiratory distress, Clear bilaterally - Abdomen Abdomen: Soft, Non tender, Non distended - Back Back: No CVA TTP - Derm Derm: Normal color, Warm and dry Results - Vitals Vitals: Vital Signs - 24 hr 03/01/20 03/01/20 03/01/20 00:00 01:58 03:20 Temperature 36.5 C 37.1 C Heart Rate 79 85 68 Respiratory 16 18 18 Rate Blood Pressure 143/95 H 122/78 126/76 O2 Saturation 99 100 98 Oxygen O2 Source Room air - Labs Labs: Laboratory Tests 03/01/20 03/01/20 03/01/20 00:16 00:16 00:16 WBC 10.4 RBC 4.22 Hgb 12.7 Hct 35.7 L MCV 84.6 MCH 30.1 MCHC 35.6 RDW 12.2 Plt Count 235 MPV 9.7 Neut # (Auto) 6.4 Lymph # (Auto) 3.1 [place] # (Auto) 0.7 Eos # (Auto) 0.1 Baso # (Auto) 0.0 Absolute Nucleated RBC 0.00 Nucleated RBC % 0.0 Sodium 133 L Potassium 2.8 L Chloride 101 Carbon Dioxide 18 L Anion Gap 14.0 H BUN 12 Creatinine 1.0 Estimated GFR (MDRD) 66 L Glucose 98 Calcium 9.6 Iron 45 TIBC 273 % Saturation 16 L Transferrin 195 Total Bilirubin 1.6 H AST 29 ALT 39 Alkaline Phosphatase 44 Total Protein 7.8 Albumin 5.0 Globulin 2.8 Albumin/Globulin Ratio 1.8 Lipase 23 TSH Urine Color Urine Clarity Urine pH Ur Specific [place] Urine Protein Urine Glucose (UA) Urine Ketones Urine Occult Blood Urine Nitrite Urine Bilirubin Urine Urobilinogen Ur Leukocyte Esterase Ur Microscopic Review Urine Culture Comments Urine HCG, Qual 03/01/20 03/01/20 03/01/20 00:16 00:51 00:51 WBC RBC Hgb Hct MCV MCH MCHC RDW Plt Count MPV Neut # (Auto) Lymph # (Auto) [place] # (Auto) Eos # (Auto) Baso # (Auto) Absolute Nucleated RBC Nucleated RBC % Sodium Potassium Chloride Carbon Dioxide Anion Gap BUN Creatinine Estimated GFR (MDRD) Glucose Calcium Iron TIBC % Saturation Transferrin Total Bilirubin AST ALT Alkaline Phosphatase Total Protein Albumin Globulin Albumin/Globulin Ratio Lipase TSH 2.37 Urine Color YELLOW Urine Clarity CLEAR Urine pH 6.0 Ur Specific [place] 1.015 1.015 Urine Protein NEGATIVE Urine Glucose (UA) NEGATIVE Urine Ketones >=80 H Urine Occult Blood TRACE-INTA Urine Nitrite NEGATIVE Urine Bilirubin NEGATIVE Urine Urobilinogen 0.2 (NORMAL) Ur Leukocyte Esterase NEGATIVE Ur Microscopic Review NOT INDICATED Urine Culture Comments NOT INDICATED Urine HCG, Qual POSITIVE - Rads (name of study) 1st trimester US Radiology: Prelim report reviewed, See rad report PD MEDICAL DECISION MAKING - ED course Complexity details: reviewed results, re-evaluated patient, considered differential, d/w patient ED course: patient reported inadequate improvement in symptoms after IV zofran and fluids. She declined benadryl for anxiety. D/W Dr. Corona, recommends IV D5NS with KCL, will admit to her service Departure - Departure Disposition: ED Place in Observation Clinical Impression: Hyperemesis gravidarum Condition: Stable Discharge Date/Time: 03/01/20 05:15
[2020-03-01 00:59] LABS: BILIRUBIN,URINE NEGATIVE (NEGATIVE); GLUCOSE, URINE (UA) NEGATIVE (NEGATIVE); KETONES,URINE (UA) >=80 mg/dL (NEGATIVE); LEUKOCYTE ESTERASE, URINE NEGATIVE (NEGATIVE); NITRITE,URINE NEGATIVE (NEGATIVE); OCCULT BLOOD,URINE TRACE-INTA (NEGATIVE); PROTEIN,URINE NEGATIVE (NEGATIVE); UROBILINOGEN,URINE 0.2 (NORMAL) E.U./dL (NORMAL)
[2020-03-01 01:01] LABS: CLARITY,URINE CLEAR (CLEAR); HCG UR QUAL POSITIVE
[2020-03-01] MEDS ORDERED: POTASSIUM CHLOR 10 MEQ/100 ML 10 MEQ/100 ML BAG IV STA (01:27)
[2020-03-01] MEDS ORDERED: ONDANSETRON 4 MG/2 ML VIAL IVP STA (01:27)
[2020-03-01] MEDS ORDERED: SODIUM CHLORIDE 0.9% 1,000 ML IV STA (01:27)
[2020-03-01] MEDS ORDERED: POTASSIUM CHLORIDE 20 MEQ TABLET PO STA (01:27)
--- NOTE | 2020-03-01 03:02 | Ultrasound Report ---
Reason: abd. cramping, 6 weeks Procedure Date: 03/01/2020 Accession Number: [id number] / [id number] Procedure: US - OB First Trimester CPT Code: Final Report FULL RESULT: EXAM: FIRST TRIMESTER OBSTETRIC ULTRASOUND (Less than 11 weeks) EXAM DATE: 03/01/2020 02:47 AM. CLINICAL HISTORY: Abdominal cramping, 6 weeks . LMP: 01/10/2020, 7 weeks 2 days. COMPARISONS: None. TECHNIQUE: Transabdominal and transvaginal ultrasound examination with static image documentation. FINDINGS: Gestational Sac: An intrauterine fluid-filled sac contains a yolk sac but no pole seen currently. Mean sac diameter of 5 mm corresponds to a 5 week 2 days gestation. Small perigestational bleed. Placenta: Not visible at this gestational age. Amniotic fluid: Not accurately assessed at this gestational age. Uterus: Unremarkable anteverted appearance. Cervix: Closed. Right Ovary: Volume 6 cc. Normal echotexture and blood flow. Left Ovary: Volume 5 cc. Normal echotexture and blood flow. Free Fluid: None. Other: None. IMPRESSION: 1. Early intrauterine gestation with gestational sac and yolk sac with no clear pole seen currently. Clinical and ultrasound follow-up suggested in 2 weeks to ensure viability of and for more accurate dating. 2. Small perigestational bleed.
--- NOTE | 2020-03-01 03:02 | Ultrasound Report ---
Reason: pelvic cramping, Procedure Date: 03/01/2020 Accession Number: [id number] / [id number] Procedure: US - OB Transvaginal CPT Code: Final Report FULL RESULT: EXAM: FIRST TRIMESTER OBSTETRIC ULTRASOUND (Less than 11 weeks) EXAM DATE: 03/01/2020 02:47 AM. CLINICAL HISTORY: Abdominal cramping, 6 weeks . LMP: 01/10/2020, 7 weeks 2 days. COMPARISONS: None. TECHNIQUE: Transabdominal and transvaginal ultrasound examination with static image documentation. FINDINGS: Gestational Sac: An intrauterine fluid-filled sac contains a yolk sac but no pole seen currently. Mean sac diameter of 5 mm corresponds to a 5 week 2 days gestation. Small perigestational bleed. Placenta: Not visible at this gestational age. Amniotic fluid: Not accurately assessed at this gestational age. Uterus: Unremarkable anteverted appearance. Cervix: Closed. Right Ovary: Volume 6 cc. Normal echotexture and blood flow. Left Ovary: Volume 5 cc. Normal echotexture and blood flow. Free Fluid: None. Other: None. IMPRESSION: 1. Early intrauterine gestation with gestational sac and yolk sac with no clear pole seen currently. Clinical and ultrasound follow-up suggested in 2 weeks to ensure viability of and for more accurate dating. 2. Small perigestational bleed.
[2020-03-01] MEDS ORDERED: DEXTROSE IV STA (03:49)
[2020-03-01] MEDS ORDERED: POTASSIUM CHLORIDE IV STA (03:49)
[2020-03-01] MEDS ORDERED: NACL IV STA (03:49)
[2020-03-01] MEDS ORDERED: D5NS W/20 MEQ KCL 1,000 ML IV STA (03:55)
[2020-03-01] MEDS ORDERED: ONDANSETRON 4 MG/2 ML VIAL IVP SCH (04:35)
--- NOTE | 2020-03-01 04:47 | CONSULTATION NOTE ---
Referring Provider Name of Referring Provider:: Dr Campos Consult Date: 03/01/20 Chief Complaint - Chief Complaint Chief Complaint: Vomiting History of Present Illness - Admitted From Admitted From:: ED - History of Present Illness HPI Comment/Other: Pt is a 30yo at 5w2d by US done today who presents with 1 week worsening vomiting. Hasn't been able to keep anything down at all for several days. Reports HEG with her previous 2012 that persisted the entire gestation. Pt is very anxious, scattered, poor historian. Denies vaginal bleeding. Reports diarrhea yesterday. No fever or UR symptoms. History - Past Medical History Cardiovascular: reports: None Respiratory: reports: Asthma (Seasonal, inhaler PRN although does not often need it. No hospitalization for asthma) Neuro: reports: None Endocrine/Autoimmune: reports: None GI: reports: None, Other (HEG) COUNTER TENDER: reports: None : reports: Chronic bladder infection (Reports h/o recurrent UTI in the past.) HEENT: reports: None Psych: reports: Anxiety (Very anxious now) Musculoskeletal: reports: None Derm: reports: None MRSA Hx?: No - Past Surgical History General: reports: Other ([place] teeth) Ortho: reports: Knee replacement, Other (Knee surgery) - Family & Social History Living arrangement: At home Living Situation: With family - Substance History Use: Uses substance without health or social issues: NONE (Denies any use) - POLST Patient has POLST: No POLST Status: Full Code Meds/Allgy - Home Medications Home Medications: Ambulatory Orders Medication Instructions Recorded Confirmed Ondansetron Odt [Zofran] 4 mg TL Q6H PRN #10 tablet 08/11/19 03/01/20 - Allergies Allergies/Adverse Reactions: Allergies Allergy/AdvReac Type Severity Reaction Status Date / Time No Known Drug Allergies Allergy Verified 03/01/20 00:00 Review of Systems - Constitutional Constitutional: reports: Fatigue - Gastrointestinal Gastrointestinal: reports: Diarrhea, Nausea, Vomiting - Genitourinary Genitourinary: reports: Frequency - Neurological Neurological: reports: Dizziness - Psychiatric Psychiatric: reports: Anxiety Exam - Vital Signs Vital Signs: Vital Signs x48h Temp Pulse Resp BP Pulse Ox 03/01/20 04:28 98.6 F 70 16 125/76 98 03/01/20 03:20 68 18 126/76 98 03/01/20 01:58 98.8 F 85 18 122/78 100 03/01/20 00:00 97.7 F 79 16 143/95 H 99 - Physical Exam General Appearance: positive: Mild distress, Anxious Neck: positive: Nml inspection. negative: Thyromegaly Respiratory: positive: No respiratory distress, Breath sounds nml. negative: Wheezes Cardiovascular: positive: Regular rate & rhythm, Systolic murmur (3/6 along LSB) Abdomen: positive: Non-tender, No distention. negative: Guarding Back: negative: CVA tenderness (R), CVA tenderness (L) Skin: positive: Color nml Neurologic/Psychiatric: positive: Oriented x3 Conclusion/Plan - Diagnosis Diagnosis: Hyperemesis gravidarum. at 5w2d - Plan Plan: 30yo with severe HEG, ketonuria, electrolyte derangements and mildly elevated creatinine. Normal early IUP on US Check iron studies, TSH and repeat UA and BMP until normalized. Inadequate resucitation thus far; Continue aggressive hydration 1L D5NS w 20KCl followed by NS w 40KCL, then recheck BMP. Continue with banana bag x2. Then recheck UA. Continue until ketones cleared and BMP normalized. IV iron if indicated IV meds zofran, phenergan, benadryl all scheduled and vit B6 when can tolerate PO also scheduled. Start with BRAT diet now, small amounts. Once tolerating PO, and nausea resolved, change all to PO and continue q6 hour regimen on a scheduled basis. - Lab Results Fish Bones: 03/01/20 00:16 03/01/20 00:16
[2020-03-01] MEDS ORDERED: NS W/40 MEQ KCL 1,000 ML IV SCH (05:00)
[2020-03-01] MEDS ORDERED: SODIUM CHLORIDE 0.9% 50 ML IV ONE (05:26)
[2020-03-01] MEDS: diphenhydrAMINE INJ 50 MG/ML VIAL IVP SCH ×4 (05:32→18:05)
[2020-03-01] MEDS: PROMETHAZINE INJ 25 MG in SODIUM CHLORIDE 0.9% 50 ML IV SCH ×3 (05:51→12:36)
--- NOTE | 2020-03-01 05:57 | PROVIDER PROGRESS NOTE ---
Subjective - Subjective Subjective: No change yet in level of nausea, however anxiety has decreased. Part way into third liter. Two additional liters ordered. Plan to follow with maintenance of LR. VSS afeb Plan as noted: dip urine until clear IV meds together on schedule q6 then change to PO when nausea resolved. Continue IV fluid IV iron when levels returned if indicated. Complete banana bags Start BRAT diet in small amounts this morning, Ensure between meals. Objective - Vital Signs/Intake & Output Vital Signs: Vital Signs x48h Temp Pulse Resp BP Pulse Ox 03/01/20 04:28 98.6 F 70 16 125/76 98 03/01/20 03:20 68 18 126/76 98 03/01/20 01:58 98.8 F 85 18 122/78 100 03/01/20 00:00 97.7 F 79 16 143/95 H 99 Intake & Output: Intake & Output 02/27/20 02/28/20 02/29/20 03/01/20 23:59 23:59 23:59 23:59 Intake Total 1976 Output Total 200 Balance 1776 - Lab Results Fish Bones: 03/01/20 00:16 03/01/20 00:16 Other Labs: Lab Results x24hrs 03/01/20 03/01/20 03/01/20 Range/Units 00:51 00:51 00:16 WBC (4.8-10.8) x10^3/uL RBC (4.20-5.40) 10^6/uL Hgb (12.0-16.0) g/dL Hct (37.0-47.0) % MCV (81.0-99.0) fL MCH (27.0-31.0) pg MCHC (32.0-36.0) g/dL RDW (12.0-15.0) % Plt Count (130-450) 10^3/uL MPV (7.9-10.8) fL Neut # (Auto) (1.5-6.6) 10^3/uL Lymph # (Auto) (1.5-3.5) 10^3/uL [place] # (Auto) (0.0-1.0) 10^3/uL Eos # (Auto) (0.0-0.7) 10^3/uL Baso # (Auto) (0.0-0.1) 10^3/uL Absolute Nucleated RBC x10^3/uL Nucleated RBC % /100WBC Sodium 133 L (135-145) mmol/L Potassium 2.8 L (3.5-5.0) mmol/L Chloride 101 (101-111) mmol/L Carbon Dioxide 18 L (21-32) mmol/L Anion Gap 14.0 H (6-13) BUN 12 (6-20) mg/dL Creatinine 1.0 (0.4-1.0) mg/dL Estimated GFR (MDRD) 66 L (>89) Glucose 98 (70-100) mg/dL Calcium 9.6 (8.5-10.3) mg/dL Total Bilirubin 1.6 H (0.2-1.0) mg/dL AST 29 (10-42) IU/L ALT 39 (10-60) IU/L Alkaline Phosphatase 44 (42-121) IU/L Total Protein 7.8 (6.7-8.2) g/dL Albumin 5.0 (3.2-5.5) g/dL Globulin 2.8 (2.1-4.2) g/dL Albumin/Globulin Ratio 1.8 (1.0-2.2) Lipase 23 (22-51) U/L Urine Color YELLOW Urine Clarity CLEAR (CLEAR) Urine pH 6.0 (5.0-7.5) PH Ur Specific [place] 1.015 1.015 (1.002-1.030) Urine Protein NEGATIVE (NEGATIVE) mg/dL Urine Glucose (UA) NEGATIVE (NEGATIVE) mg/dL Urine Ketones >=80 H (NEGATIVE) mg/dL Urine Occult Blood TRACE-INTA (NEGATIVE) Urine Nitrite NEGATIVE (NEGATIVE) Urine Bilirubin NEGATIVE (NEGATIVE) Urine Urobilinogen 0.2 (NORMAL) (NORMAL) E.U./dL Ur Leukocyte Esterase NEGATIVE (NEGATIVE) Ur Microscopic Review NOT INDICATED Urine Culture Comments NOT INDICATED Urine HCG, Qual POSITIVE 03/01/20 Range/Units 00:16 WBC 10.4 (4.8-10.8) x10^3/uL RBC 4.22 (4.20-5.40) 10^6/uL Hgb 12.7 (12.0-16.0) g/dL Hct 35.7 L (37.0-47.0) % MCV 84.6 (81.0-99.0) fL MCH 30.1 (27.0-31.0) pg MCHC 35.6 (32.0-36.0) g/dL RDW 12.2 (12.0-15.0) % Plt Count 235 (130-450) 10^3/uL MPV 9.7 (7.9-10.8) fL Neut # (Auto) 6.4 (1.5-6.6) 10^3/uL Lymph # (Auto) 3.1 (1.5-3.5) 10^3/uL [place] # (Auto) 0.7 (0.0-1.0) 10^3/uL Eos # (Auto) 0.1 (0.0-0.7) 10^3/uL Baso # (Auto) 0.0 (0.0-0.1) 10^3/uL Absolute Nucleated RBC 0.00 x10^3/uL Nucleated RBC % 0.0 /100WBC Sodium (135-145) mmol/L Potassium (3.5-5.0) mmol/L Chloride (101-111) mmol/L Carbon Dioxide (21-32) mmol/L Anion Gap (6-13) BUN (6-20) mg/dL Creatinine (0.4-1.0) mg/dL Estimated GFR (MDRD) (>89) Glucose (70-100) mg/dL Calcium (8.5-10.3) mg/dL Total Bilirubin (0.2-1.0) mg/dL AST (10-42) IU/L ALT (10-60) IU/L Alkaline Phosphatase (42-121) IU/L Total Protein (6.7-8.2) g/dL Albumin (3.2-5.5) g/dL Globulin (2.1-4.2) g/dL Albumin/Globulin Ratio (1.0-2.2) Lipase (22-51) U/L Urine Color Urine Clarity (CLEAR) Urine pH (5.0-7.5) PH Ur Specific [place] (1.002-1.030) Urine Protein (NEGATIVE) mg/dL Urine Glucose (UA) (NEGATIVE) mg/dL Urine Ketones (NEGATIVE) mg/dL Urine Occult Blood (NEGATIVE) Urine Nitrite (NEGATIVE) Urine Bilirubin (NEGATIVE) Urine Urobilinogen (NORMAL) E.U./dL Ur Leukocyte Esterase (NEGATIVE) Ur Microscopic Review Urine Culture Comments Urine HCG, Qual
[2020-03-01] MEDS: ONDANSETRON 4 MG/2 ML VIAL IVP SCH ×4 (06:00→18:05)
[2020-03-01] MEDS: PYRIDOXINE 100 MG TABLET PO SCH ×3 (06:33→18:05)
[2020-03-01 06:40] LABS: % IRON SATURATION 16 % (20-50); IRON 45 ug/dL (28-170); TOTAL IRON BINDING CAPACITY 273 ug/dL (250-450); TRANSFERRIN 195 mg/dL (192-382)
[2020-03-01] MEDS ORDERED: LORazepam 0.5 MG TABLET SL PRN (07:38)
--- NOTE | 2020-03-01 07:45 | PROVIDER PROGRESS NOTE ---
Subjective - Prog Note Date Prog Note Date: 03/01/20 Prog Note Time: 07:41 - Subjective Subjective: Appears comfortable when no one is in the room with her; upon entering she startles abnormally and is very anxious. States her skin is crawling, wants this "thing" (the ) out of her, etc. Of note she was noted to have the same behavior in the ED prior to receiving antiemetic medications. Continues to be rehydrated, potassium replaced. New labs show iron deficiency and that has been ordered. Will give ativan now health services rn consult requested. Rpt lyangel ordered. Objective - Vital Signs/Intake & Output Vital Signs: Vital Signs x48h Temp Pulse Pulse Resp BP BP Pulse Ox 03/01/20 05:25 99.0 F 83 16 126/76 99 03/01/20 04:28 98.6 F 70 16 125/76 98 03/01/20 03:20 68 18 126/76 98 03/01/20 01:58 98.8 F 85 18 122/78 100 03/01/20 00:00 97.7 F 79 16 143/95 H 99 Intake & Output: Intake & Output 02/27/20 02/28/20 02/29/20 03/01/20 23:59 23:59 23:59 23:59 Intake Total 2026 Output Total 1000 Balance 1027 - Lab Results Fish Bones: 03/01/20 00:16 03/01/20 00:16 Other Labs: Lab Results x24hrs 03/01/20 03/01/20 03/01/20 Range/Units 00:51 00:51 00:16 WBC (4.8-10.8) x10^3/uL RBC (4.20-5.40) 10^6/uL Hgb (12.0-16.0) g/dL Hct (37.0-47.0) % MCV (81.0-99.0) fL MCH (27.0-31.0) pg MCHC (32.0-36.0) g/dL RDW (12.0-15.0) % Plt Count (130-450) 10^3/uL MPV (7.9-10.8) fL Neut # (Auto) (1.5-6.6) 10^3/uL Lymph # (Auto) (1.5-3.5) 10^3/uL [place] # (Auto) (0.0-1.0) 10^3/uL Eos # (Auto) (0.0-0.7) 10^3/uL Baso # (Auto) (0.0-0.1) 10^3/uL Absolute Nucleated RBC x10^3/uL Nucleated RBC % /100WBC Sodium (135-145) mmol/L Potassium (3.5-5.0) mmol/L Chloride (101-111) mmol/L Carbon Dioxide (21-32) mmol/L Anion Gap (6-13) BUN (6-20) mg/dL Creatinine (0.4-1.0) mg/dL Estimated GFR (MDRD) (>89) Glucose (70-100) mg/dL Calcium (8.5-10.3) mg/dL Iron (28-170) ug/dL TIBC (250-450) ug/dL % Saturation (20-50) % Transferrin (192-382) mg/dL Total Bilirubin (0.2-1.0) mg/dL AST (10-42) IU/L ALT (10-60) IU/L Alkaline Phosphatase (42-121) IU/L Total Protein (6.7-8.2) g/dL Albumin (3.2-5.5) g/dL Globulin (2.1-4.2) g/dL Albumin/Globulin Ratio (1.0-2.2) Lipase (22-51) U/L TSH 2.37 (0.34-5.60) uIU/mL Urine Color YELLOW Urine Clarity CLEAR (CLEAR) Urine pH 6.0 (5.0-7.5) PH Ur Specific [place] 1.015 1.015 (1.002-1.030) Urine Protein NEGATIVE (NEGATIVE) mg/dL Urine Glucose (UA) NEGATIVE (NEGATIVE) mg/dL Urine Ketones >=80 H (NEGATIVE) mg/dL Urine Occult Blood TRACE-INTA (NEGATIVE) Urine Nitrite NEGATIVE (NEGATIVE) Urine Bilirubin NEGATIVE (NEGATIVE) Urine Urobilinogen 0.2 (NORMAL) (NORMAL) E.U./dL Ur Leukocyte Esterase NEGATIVE (NEGATIVE) Ur Microscopic Review NOT INDICATED Urine Culture Comments NOT INDICATED Urine HCG, Qual POSITIVE 05/25/20 05/25/20 05/25/20 Range/Units 00:16 00:16 00:16 WBC 10.4 (4.8-10.8) x10^3/uL RBC 4.22 (4.20-5.40) 10^6/uL Hgb 12.7 (12.0-16.0) g/dL Hct 35.7 L (37.0-47.0) % MCV 84.6 (81.0-99.0) fL MCH 30.1 (27.0-31.0) pg MCHC 35.6 (32.0-36.0) g/dL RDW 12.2 (12.0-15.0) % Plt Count 235 (130-450) 10^3/uL MPV 9.7 (7.9-10.8) fL Neut # (Auto) 6.4 (1.5-6.6) 10^3/uL Lymph # (Auto) 3.1 (1.5-3.5) 10^3/uL [place] # (Auto) 0.7 (0.0-1.0) 10^3/uL Eos # (Auto) 0.1 (0.0-0.7) 10^3/uL Baso # (Auto) 0.0 (0.0-0.1) 10^3/uL Absolute Nucleated RBC 0.00 x10^3/uL Nucleated RBC % 0.0 /100WBC Sodium 133 L (135-145) mmol/L Potassium 2.8 L (3.5-5.0) mmol/L Chloride 101 (101-111) mmol/L Carbon Dioxide 18 L (21-32) mmol/L Anion Gap 14.0 H (6-13) BUN 12 (6-20) mg/dL Creatinine 1.0 (0.4-1.0) mg/dL Estimated GFR (MDRD) 66 L (>89) Glucose 98 (70-100) mg/dL Calcium 9.6 (8.5-10.3) mg/dL Iron 45 (28-170) ug/dL TIBC 273 (250-450) ug/dL % Saturation 16 L (20-50) % Transferrin 195 (192-382) mg/dL Total Bilirubin 1.6 H (0.2-1.0) mg/dL AST 29 (10-42) IU/L ALT 39 (10-60) IU/L Alkaline Phosphatase 44 (42-121) IU/L Total Protein 7.8 (6.7-8.2) g/dL Albumin 5.0 (3.2-5.5) g/dL Globulin 2.8 (2.1-4.2) g/dL Albumin/Globulin Ratio 1.8 (1.0-2.2) Lipase 23 (22-51) U/L TSH (0.34-5.60) uIU/mL Urine Color Urine Clarity (CLEAR) Urine pH (5.0-7.5) PH Ur Specific [place] (1.002-1.030) Urine Protein (NEGATIVE) mg/dL Urine Glucose (UA) (NEGATIVE) mg/dL Urine Ketones (NEGATIVE) mg/dL Urine Occult Blood (NEGATIVE) Urine Nitrite (NEGATIVE) Urine Bilirubin (NEGATIVE) Urine Urobilinogen (NORMAL) E.U./dL Ur Leukocyte Esterase (NEGATIVE) Ur Microscopic Review Urine Culture Comments Urine HCG, Qual
[2020-03-01 08:34] LABS: HGB - HEMOGLOBIN 11.4 g/dL (12.0-16.0); MEAN CORPUSCULAR HEMOGLOBIN 30.6 pg (27.0-31.0); MEAN CORPUSCULAR VOLUME 85.2 fL (81.0-99.0); MEAN PLATELET VOLUME 9.9 fL (7.9-10.8); RED BLOOD COUNT 3.72 10^6/uL (4.20-5.40); RED CELL DISTRIBUTION WIDTH 12.3 % (12.0-15.0); WHITE BLOOD COUNT 8.3 x10^3/uL (4.8-10.8)
[2020-03-01 08:45] LABS: CALCIUM 8.3 mg/dL (8.5-10.3); CREATININE 0.8 mg/dL (0.4-1.0)
[2020-03-01] MEDS ORDERED: SODIUM CHLORIDE 0.9% IV ONE (09:00)
[2020-03-01] MEDS ORDERED: MULTIVITAMIN 10 ML, FOLIC ACID INJ 1 MG, THIAMINE INJ 100 MG, MAGNESIUM SULFATE 2 GM in... IV SCH ×5 (09:00)
[2020-03-01] MEDS ORDERED: IRON DEXTRAN IV ONE (09:00)
[2020-03-01 09:42] LABS: BILIRUBIN,URINE NEGATIVE (NEGATIVE); GLUCOSE, URINE (UA) NEGATIVE (NEGATIVE); KETONES,URINE (UA) 15 mg/dL (NEGATIVE); LEUKOCYTE ESTERASE, URINE NEGATIVE (NEGATIVE); NITRITE,URINE NEGATIVE (NEGATIVE); OCCULT BLOOD,URINE NEGATIVE (NEGATIVE); PROTEIN,URINE NEGATIVE (NEGATIVE); UROBILINOGEN,URINE 0.2 (NORMAL) E.U./dL (NORMAL)
[2020-03-01 09:44] LABS: CLARITY,URINE CLEAR (CLEAR)
[2020-03-01 11:41] LABS: BILIRUBIN,URINE NEGATIVE (NEGATIVE); GLUCOSE, URINE (UA) NEGATIVE (NEGATIVE); KETONES,URINE (UA) 15 mg/dL (NEGATIVE); LEUKOCYTE ESTERASE, URINE NEGATIVE (NEGATIVE); NITRITE,URINE NEGATIVE (NEGATIVE); OCCULT BLOOD,URINE NEGATIVE (NEGATIVE); PH,URINE 5.5 PH (5.0-7.5); PROTEIN,URINE NEGATIVE (NEGATIVE); UROBILINOGEN,URINE 0.2 (NORMAL) E.U./dL (NORMAL)
[2020-03-01 11:45] LABS: CLARITY,URINE CLEAR (CLEAR)
[2020-03-01] MEDS: LACTATED RINGERS 1,000 ML IV SCH ×3 (12:46→16:39)
--- NOTE | 2020-03-01 14:27 | PROVIDER PROGRESS NOTE ---
Subjective - Prog Note Date Prog Note Date: 03/01/20 Prog Note Time: 11:00 - Subjective Subjective: Patient reports that nausea is better controlled. She has not had any vomiting in the last hour. Review of her electrolytes show that her labs are improv ing.She states that she does not want to continue the and wants to discuss options. Objective - Vital Signs/Intake & Output Vital Signs: Vital Signs x48h Temp Pulse Resp BP Pulse Ox 03/01/20 10:00 98.8 F 70 18 128/81 H 99 Intake & Output: Intake & Output 02/27/20 02/28/20 02/29/20 03/01/20 23:59 23:59 23:59 23:59 Intake Total 4596.200 Output Total 2975 Balance 1621.200 - Objective General Appearance: positive: Mild distress Neck: positive: Nml inspection Respiratory: positive: No respiratory distress, Breath sounds nml Cardiovascular: positive: Regular rate & rhythm Abdomen: positive: Non-tender Skin: positive: Color nml Extremities: positive: Non-tender Neurologic/Psychiatric: positive: Oriented x3, Mood/affect nml, Other - Lab Results Fish Bones: 03/01/20 08:25 03/01/20 08:25 Other Labs: Lab Results x24hrs 03/01/20 03/01/20 03/01/20 Range/Units 11:25 08:41 08:25 WBC (4.8-10.8) x10^3/uL RBC (4.20-5.40) 10^6/uL Hgb (12.0-16.0) g/dL Hct (37.0-47.0) % MCV (81.0-99.0) fL MCH (27.0-31.0) pg MCHC (32.0-36.0) g/dL RDW (12.0-15.0) % Plt Count (130-450) 10^3/uL MPV (7.9-10.8) fL Neut # (Auto) (1.5-6.6) 10^3/uL Lymph # (Auto) (1.5-3.5) 10^3/uL [place] # (Auto) (0.0-1.0) 10^3/uL Eos # (Auto) (0.0-0.7) 10^3/uL Baso # (Auto) (0.0-0.1) 10^3/uL Absolute Nucleated RBC x10^3/uL Nucleated RBC % /100WBC Sodium 138 (135-145) mmol/L Potassium 4.1 (3.5-5.0) mmol/L Chloride 113 H (101-111) mmol/L Carbon Dioxide 19 L (21-32) mmol/L Anion Gap 6.0 (6-13) BUN 8 (6-20) mg/dL Creatinine 0.8 (0.4-1.0) mg/dL Estimated GFR (MDRD) 85 L (>89) Glucose 101 H (70-100) mg/dL Calcium 8.3 L (8.5-10.3) mg/dL Iron (28-170) ug/dL TIBC (250-450) ug/dL % Saturation (20-50) % Transferrin (192-382) mg/dL Total Bilirubin (0.2-1.0) mg/dL AST (10-42) IU/L ALT (10-60) IU/L Alkaline Phosphatase (42-121) IU/L Total Protein (6.7-8.2) g/dL Albumin (3.2-5.5) g/dL Globulin (2.1-4.2) g/dL Albumin/Globulin Ratio (1.0-2.2) Lipase (22-51) U/L TSH (0.34-5.60) uIU/mL Urine Color YELLOW YELLOW Urine Clarity CLEAR CLEAR (CLEAR) Urine pH 5.5 6.0 (5.0-7.5) PH Ur Specific [place] 1.020 1.010 (1.002-1.030) Urine Protein NEGATIVE NEGATIVE (NEGATIVE) mg/dL Urine Glucose (UA) NEGATIVE NEGATIVE (NEGATIVE) mg/dL Urine Ketones 15 H 15 H (NEGATIVE) mg/dL Urine Occult Blood NEGATIVE NEGATIVE (NEGATIVE) Urine Nitrite NEGATIVE NEGATIVE (NEGATIVE) Urine Bilirubin NEGATIVE NEGATIVE (NEGATIVE) Urine Urobilinogen 0.2 (NORMAL) 0.2 (NORMAL) (NORMAL) E.U./dL Ur Leukocyte Esterase NEGATIVE NEGATIVE (NEGATIVE) Ur Microscopic Review Urine Culture Comments Urine HCG, Qual 03/01/20 03/01/20 03/01/20 Range/Units 08:25 00:51 00:51 WBC 8.3 (4.8-10.8) x10^3/uL RBC 3.72 L (4.20-5.40) 10^6/uL Hgb 11.4 L (12.0-16.0) g/dL Hct 31.7 L (37.0-47.0) % MCV 85.2 (81.0-99.0) fL MCH 30.6 (27.0-31.0) pg MCHC 36.0 (32.0-36.0) g/dL RDW 12.3 (12.0-15.0) % Plt Count 205 (130-450) 10^3/uL MPV 9.9 (7.9-10.8) fL Neut # (Auto) (1.5-6.6) 10^3/uL Lymph # (Auto) (1.5-3.5) 10^3/uL [place] # (Auto) (0.0-1.0) 10^3/uL Eos # (Auto) (0.0-0.7) 10^3/uL Baso # (Auto) (0.0-0.1) 10^3/uL Absolute Nucleated RBC x10^3/uL Nucleated RBC % /100WBC Sodium (135-145) mmol/L Potassium (3.5-5.0) mmol/L Chloride (101-111) mmol/L Carbon Dioxide (21-32) mmol/L Anion Gap (6-13) BUN (6-20) mg/dL Creatinine (0.4-1.0) mg/dL Estimated GFR (MDRD) (>89) Glucose (70-100) mg/dL Calcium (8.5-10.3) mg/dL Iron (28-170) ug/dL TIBC (250-450) ug/dL % Saturation (20-50) % Transferrin (192-382) mg/dL Total Bilirubin (0.2-1.0) mg/dL AST (10-42) IU/L ALT (10-60) IU/L Alkaline Phosphatase (42-121) IU/L Total Protein (6.7-8.2) g/dL Albumin (3.2-5.5) g/dL Globulin (2.1-4.2) g/dL Albumin/Globulin Ratio (1.0-2.2) Lipase (22-51) U/L TSH (0.34-5.60) uIU/mL Urine Color YELLOW Urine Clarity CLEAR (CLEAR) Urine pH 6.0 (5.0-7.5) PH Ur Specific [place] 1.015 1.015 (1.002-1.030) Urine Protein NEGATIVE (NEGATIVE) mg/dL Urine Glucose (UA) NEGATIVE (NEGATIVE) mg/dL Urine Ketones >=80 H (NEGATIVE) mg/dL Urine Occult Blood TRACE-INTA (NEGATIVE) Urine Nitrite NEGATIVE (NEGATIVE) Urine Bilirubin NEGATIVE (NEGATIVE) Urine Urobilinogen 0.2 (NORMAL) (NORMAL) E.U./dL Ur Leukocyte Esterase NEGATIVE (NEGATIVE) Ur Microscopic Review NOT INDICATED Urine Culture Comments NOT INDICATED Urine HCG, Qual POSITIVE 03/01/20 03/01/20 03/01/20 Range/Units 00:16 00:16 00:16 WBC (4.8-10.8) x10^3/uL RBC (4.20-5.40) 10^6/uL Hgb (12.0-16.0) g/dL Hct (37.0-47.0) % MCV (81.0-99.0) fL MCH (27.0-31.0) pg MCHC (32.0-36.0) g/dL RDW (12.0-15.0) % Plt Count (130-450) 10^3/uL MPV (7.9-10.8) fL Neut # (Auto) (1.5-6.6) 10^3/uL Lymph # (Auto) (1.5-3.5) 10^3/uL [place] # (Auto) (0.0-1.0) 10^3/uL Eos # (Auto) (0.0-0.7) 10^3/uL Baso # (Auto) (0.0-0.1) 10^3/uL Absolute Nucleated RBC x10^3/uL Nucleated RBC % /100WBC Sodium 133 L (135-145) mmol/L Potassium 2.8 L (3.5-5.0) mmol/L Chloride 101 (101-111) mmol/L Carbon Dioxide 18 L (21-32) mmol/L Anion Gap 14.0 H (6-13) BUN 12 (6-20) mg/dL Creatinine 1.0 (0.4-1.0) mg/dL Estimated GFR (MDRD) 66 L (>89) Glucose 98 (70-100) mg/dL Calcium 9.6 (8.5-10.3) mg/dL Iron 45 (28-170) ug/dL TIBC 273 (250-450) ug/dL % Saturation 16 L (20-50) % Transferrin 195 (192-382) mg/dL Total Bilirubin 1.6 H (0.2-1.0) mg/dL AST 29 (10-42) IU/L ALT 39 (10-60) IU/L Alkaline Phosphatase 44 (42-121) IU/L Total Protein 7.8 (6.7-8.2) g/dL Albumin 5.0 (3.2-5.5) g/dL Globulin 2.8 (2.1-4.2) g/dL Albumin/Globulin Ratio 1.8 (1.0-2.2) Lipase 23 (22-51) U/L TSH 2.37 (0.34-5.60) uIU/mL Urine Color Urine Clarity (CLEAR) Urine pH (5.0-7.5) PH Ur Specific [place] (1.002-1.030) Urine Protein (NEGATIVE) mg/dL Urine Glucose (UA) (NEGATIVE) mg/dL Urine Ketones (NEGATIVE) mg/dL Urine Occult Blood (NEGATIVE) Urine Nitrite (NEGATIVE) Urine Bilirubin (NEGATIVE) Urine Urobilinogen (NORMAL) E.U./dL Ur Leukocyte Esterase (NEGATIVE) Ur Microscopic Review Urine Culture Comments Urine HCG, Qual 03/01/20 Range/Units 00:16 WBC 10.4 (4.8-10.8) x10^3/uL RBC 4.22 (4.20-5.40) 10^6/uL Hgb 12.7 (12.0-16.0) g/dL Hct 35.7 L (37.0-47.0) % MCV 84.6 (81.0-99.0) fL MCH 30.1 (27.0-31.0) pg MCHC 35.6 (32.0-36.0) g/dL RDW 12.2 (12.0-15.0) % Plt Count 235 (130-450) 10^3/uL MPV 9.7 (7.9-10.8) fL Neut # (Auto) 6.4 (1.5-6.6) 10^3/uL Lymph # (Auto) 3.1 (1.5-3.5) 10^3/uL [place] # (Auto) 0.7 (0.0-1.0) 10^3/uL Eos # (Auto) 0.1 (0.0-0.7) 10^3/uL Baso # (Auto) 0.0 (0.0-0.1) 10^3/uL Absolute Nucleated RBC 0.00 x10^3/uL Nucleated RBC % 0.0 /100WBC Sodium (135-145) mmol/L Potassium (3.5-5.0) mmol/L Chloride (101-111) mmol/L Carbon Dioxide (21-32) mmol/L Anion Gap (6-13) BUN (6-20) mg/dL Creatinine (0.4-1.0) mg/dL Estimated GFR (MDRD) (>89) Glucose (70-100) mg/dL Calcium (8.5-10.3) mg/dL Iron (28-170) ug/dL TIBC (250-450) ug/dL % Saturation (20-50) % Transferrin (192-382) mg/dL Total Bilirubin (0.2-1.0) mg/dL AST (10-42) IU/L ALT (10-60) IU/L Alkaline Phosphatase (42-121) IU/L Total Protein (6.7-8.2) g/dL Albumin (3.2-5.5) g/dL Globulin (2.1-4.2) g/dL Albumin/Globulin Ratio (1.0-2.2) Lipase (22-51) U/L TSH (0.34-5.60) uIU/mL Urine Color Urine Clarity (CLEAR) Urine pH (5.0-7.5) PH Ur Specific [place] (1.002-1.030) Urine Protein (NEGATIVE) mg/dL Urine Glucose (UA) (NEGATIVE) mg/dL Urine Ketones (NEGATIVE) mg/dL Urine Occult Blood (NEGATIVE) Urine Nitrite (NEGATIVE) Urine Bilirubin (NEGATIVE) Urine Urobilinogen (NORMAL) E.U./dL Ur Leukocyte Esterase (NEGATIVE) Ur Microscopic Review Urine Culture Comments Urine HCG, Qual Assessment/Plan - Problem List (1) Hyperemesis gravidarum Impression: 30yo at 5w2d by US done today admitted with HEG and electrolyte imbalance Has had IVF repletion as well as potassium, iron, banana bag repletion Able to tolerate po at this time. This patient is known to the [facility] and has reported severe nausea, ambivalence regarding , and concerns about her ability to tolerate severe NV for the duration of . She has been considering termination and today confirms that she would like to proceed. We reviewed that surgical intervention is not an option at this time We reviewed steps to be taken for medical TOP She must be able to tolerate po for more than one hour on two instances by 24 to 48 hours. She will have lunch and reassess whether she is able to maintain her midday meal. Mifepristone is not available in-patient and clinic is not accessible given the holiday weekend -Will either maintain patient as in-patient to administer in the am after clinic opens or discharge to have patient present to clinic tomorrow am pending resolution of N/V In-patient care until stability of symptom resolution is confirmed.
[2020-03-01 16:29] LABS: BILIRUBIN,URINE NEGATIVE (NEGATIVE); GLUCOSE, URINE (UA) NEGATIVE (NEGATIVE); KETONES,URINE (UA) 15 mg/dL (NEGATIVE); LEUKOCYTE ESTERASE, URINE NEGATIVE (NEGATIVE); NITRITE,URINE NEGATIVE (NEGATIVE); OCCULT BLOOD,URINE TRACE-LYSE (NEGATIVE); PH,URINE 6.5 PH (5.0-7.5); PROTEIN,URINE NEGATIVE (NEGATIVE); UROBILINOGEN,URINE 0.2 (NORMAL) E.U./dL (NORMAL)
[2020-03-01 16:33] LABS: CLARITY,URINE CLEAR (CLEAR)
[2020-03-01] MEDS ORDERED: PROMETHAZINE INJ 25 MG in SODIUM CHLORIDE 0.9% 50 ML IV SCH (18:00)
--- NOTE | 2020-03-01 18:53 | Discharge Plan ---
Discharge Plan Problem Reviewed?: Yes Disposition: Home, Self Care Condition: Good Diet: Regular Activity Restrictions: No Restrictions Shower Restrictions: No Plan of Treatment: Patient with follow-up in clinic tomorrow or Sunday, depending on clinic openings Has home medications available. Does not need prescriptions. Encouraged to take zofran scheduled 8 mg by mouth every 8 hours to keep nausea under control. No Smoking: If you smoke, Please STOP! Call for help. Follow-up with: Cristina Pedersen DO [Primary Care Provider] - NEISHA EUBANKS MD, PHD [Physician No Access] -
--- NOTE | 2020-03-01 18:56 | PROVIDER PROGRESS NOTE ---
Subjective - Prog Note Date Prog Note Date: 03/01/20 Prog Note Time: 18:53 - Subjective Pt reports feeling: Improved Subjective: Last emesis this am. Was able to tolerate her midday meal without further nausea. Declines ativan as felt overly sedated. Interested in going home with follow-up in clinic tomorrow. Objective - Vital Signs/Intake & Output Vital Signs: Vital Signs x48h Temp Pulse Resp BP Pulse Ox 03/01/20 15:47 99.3 F 60 18 125/77 96 03/01/20 13:00 99.3 F 63 20 131/80 H 98 Intake & Output: Intake & Output 02/27/20 02/28/20 02/29/20 03/01/20 23:59 23:59 23:59 23:59 Intake Total 5567.033 Output Total 5075 Balance 492.033 - Objective General Appearance: positive: No acute distress Respiratory: positive: Chest non-tender, No respiratory distress, Breath sounds nml Cardiovascular: positive: Regular rate & rhythm Skin: positive: Color nml Neurologic/Psychiatric: positive: Oriented x3 - Lab Results Fish Bones: 03/01/20 08:25 03/01/20 08:25 Other Labs: Lab Results x24hrs 03/01/20 03/01/20 03/01/20 Range/Units 16:15 14:55 11:25 WBC (4.8-10.8) x10^3/uL RBC (4.20-5.40) 10^6/uL Hgb (12.0-16.0) g/dL Hct (37.0-47.0) % MCV (81.0-99.0) fL MCH (27.0-31.0) pg MCHC (32.0-36.0) g/dL RDW (12.0-15.0) % Plt Count (130-450) 10^3/uL MPV (7.9-10.8) fL Neut # (Auto) (1.5-6.6) 10^3/uL Lymph # (Auto) (1.5-3.5) 10^3/uL [place] # (Auto) (0.0-1.0) 10^3/uL Eos # (Auto) (0.0-0.7) 10^3/uL Baso # (Auto) (0.0-0.1) 10^3/uL Absolute Nucleated RBC x10^3/uL Nucleated RBC % /100WBC Sodium (135-145) mmol/L Potassium (3.5-5.0) mmol/L Chloride (101-111) mmol/L Carbon Dioxide (21-32) mmol/L Anion Gap (6-13) BUN (6-20) mg/dL Creatinine (0.4-1.0) mg/dL Estimated GFR (MDRD) (>89) Glucose (70-100) mg/dL Calcium (8.5-10.3) mg/dL Iron (28-170) ug/dL TIBC (250-450) ug/dL % Saturation (20-50) % Transferrin (192-382) mg/dL Total Bilirubin (0.2-1.0) mg/dL AST (10-42) IU/L ALT (10-60) IU/L Alkaline Phosphatase (42-121) IU/L Total Protein (6.7-8.2) g/dL Albumin (3.2-5.5) g/dL Globulin (2.1-4.2) g/dL Albumin/Globulin Ratio (1.0-2.2) Lipase (22-51) U/L TSH (0.34-5.60) uIU/mL Urine Color YELLOW YELLOW Urine Clarity CLEAR CLEAR (CLEAR) Urine pH 6.5 5.5 (5.0-7.5) PH Ur Specific [place] 1.010 1.020 (1.002-1.030) Urine Protein NEGATIVE NEGATIVE (NEGATIVE) mg/dL Urine Glucose (UA) NEGATIVE NEGATIVE (NEGATIVE) mg/dL Urine Ketones 15 H 15 H (NEGATIVE) mg/dL Urine Occult Blood TRACE-LYSE NEGATIVE (NEGATIVE) Urine Nitrite NEGATIVE NEGATIVE (NEGATIVE) Urine Bilirubin NEGATIVE NEGATIVE (NEGATIVE) Urine Urobilinogen 0.2 (NORMAL) 0.2 (NORMAL) (NORMAL) E.U./dL Ur Leukocyte Esterase NEGATIVE NEGATIVE (NEGATIVE) Ur Microscopic Review Urine Culture Comments Urine HCG, Qual Blood Type A POSITIVE 03/01/20 03/01/20 03/01/20 Range/Units 08:41 08:25 08:25 WBC 8.3 (4.8-10.8) x10^3/uL RBC 3.72 L (4.20-5.40) 10^6/uL Hgb 11.4 L (12.0-16.0) g/dL Hct 31.7 L (37.0-47.0) % MCV 85.2 (81.0-99.0) fL MCH 30.6 (27.0-31.0) pg MCHC 36.0 (32.0-36.0) g/dL RDW 12.3 (12.0-15.0) % Plt Count 205 (130-450) 10^3/uL MPV 9.9 (7.9-10.8) fL Neut # (Auto) (1.5-6.6) 10^3/uL Lymph # (Auto) (1.5-3.5) 10^3/uL [place] # (Auto) (0.0-1.0) 10^3/uL Eos # (Auto) (0.0-0.7) 10^3/uL Baso # (Auto) (0.0-0.1) 10^3/uL Absolute Nucleated RBC x10^3/uL Nucleated RBC % /100WBC Sodium 138 (135-145) mmol/L Potassium 4.1 (3.5-5.0) mmol/L Chloride 113 H (101-111) mmol/L Carbon Dioxide 19 L (21-32) mmol/L Anion Gap 6.0 (6-13) BUN 8 (6-20) mg/dL Creatinine 0.8 (0.4-1.0) mg/dL Estimated GFR (MDRD) 85 L (>89) Glucose 101 H (70-100) mg/dL Calcium 8.3 L (8.5-10.3) mg/dL Iron (28-170) ug/dL TIBC (250-450) ug/dL % Saturation (20-50) % Transferrin (192-382) mg/dL Total Bilirubin (0.2-1.0) mg/dL AST (10-42) IU/L ALT (10-60) IU/L Alkaline Phosphatase (42-121) IU/L Total Protein (6.7-8.2) g/dL Albumin (3.2-5.5) g/dL Globulin (2.1-4.2) g/dL Albumin/Globulin Ratio (1.0-2.2) Lipase (22-51) U/L TSH (0.34-5.60) uIU/mL Urine Color YELLOW Urine Clarity CLEAR (CLEAR) Urine pH 6.0 (5.0-7.5) PH Ur Specific [place] 1.010 (1.002-1.030) Urine Protein NEGATIVE (NEGATIVE) mg/dL Urine Glucose (UA) NEGATIVE (NEGATIVE) mg/dL Urine Ketones 15 H (NEGATIVE) mg/dL Urine Occult Blood NEGATIVE (NEGATIVE) Urine Nitrite NEGATIVE (NEGATIVE) Urine Bilirubin NEGATIVE (NEGATIVE) Urine Urobilinogen 0.2 (NORMAL) (NORMAL) E.U./dL Ur Leukocyte Esterase NEGATIVE (NEGATIVE) Ur Microscopic Review Urine Culture Comments Urine HCG, Qual Blood Type 03/01/20 03/01/20 03/01/20 Range/Units 00:51 00:51 00:16 WBC (4.8-10.8) x10^3/uL RBC (4.20-5.40) 10^6/uL Hgb (12.0-16.0) g/dL Hct (37.0-47.0) % MCV (81.0-99.0) fL MCH (27.0-31.0) pg MCHC (32.0-36.0) g/dL RDW (12.0-15.0) % Plt Count (130-450) 10^3/uL MPV (7.9-10.8) fL Neut # (Auto) (1.5-6.6) 10^3/uL Lymph # (Auto) (1.5-3.5) 10^3/uL [place] # (Auto) (0.0-1.0) 10^3/uL Eos # (Auto) (0.0-0.7) 10^3/uL Baso # (Auto) (0.0-0.1) 10^3/uL Absolute Nucleated RBC x10^3/uL Nucleated RBC % /100WBC Sodium (135-145) mmol/L Potassium (3.5-5.0) mmol/L Chloride (101-111) mmol/L Carbon Dioxide (21-32) mmol/L Anion Gap (6-13) BUN (6-20) mg/dL Creatinine (0.4-1.0) mg/dL Estimated GFR (MDRD) (>89) Glucose (70-100) mg/dL Calcium (8.5-10.3) mg/dL Iron (28-170) ug/dL TIBC (250-450) ug/dL % Saturation (20-50) % Transferrin (192-382) mg/dL Total Bilirubin (0.2-1.0) mg/dL AST (10-42) IU/L ALT (10-60) IU/L Alkaline Phosphatase (42-121) IU/L Total Protein (6.7-8.2) g/dL Albumin (3.2-5.5) g/dL Globulin (2.1-4.2) g/dL Albumin/Globulin Ratio (1.0-2.2) Lipase (22-51) U/L TSH 2.37 (0.34-5.60) uIU/mL Urine Color YELLOW Urine Clarity CLEAR (CLEAR) Urine pH 6.0 (5.0-7.5) PH Ur Specific [place] 1.015 1.015 (1.002-1.030) Urine Protein NEGATIVE (NEGATIVE) mg/dL Urine Glucose (UA) NEGATIVE (NEGATIVE) mg/dL Urine Ketones >=80 H (NEGATIVE) mg/dL Urine Occult Blood TRACE-INTA (NEGATIVE) Urine Nitrite NEGATIVE (NEGATIVE) Urine Bilirubin NEGATIVE (NEGATIVE) Urine Urobilinogen 0.2 (NORMAL) (NORMAL) E.U./dL Ur Leukocyte Esterase NEGATIVE (NEGATIVE) Ur Microscopic Review NOT INDICATED Urine Culture Comments NOT INDICATED Urine HCG, Qual POSITIVE Blood Type 03/01/20 03/01/20 03/01/20 Range/Units 00:16 00:16 00:16 WBC 10.4 (4.8-10.8) x10^3/uL RBC 4.22 (4.20-5.40) 10^6/uL Hgb 12.7 (12.0-16.0) g/dL Hct 35.7 L (37.0-47.0) % MCV 84.6 (81.0-99.0) fL MCH 30.1 (27.0-31.0) pg MCHC 35.6 (32.0-36.0) g/dL RDW 12.2 (12.0-15.0) % Plt Count 235 (130-450) 10^3/uL MPV 9.7 (7.9-10.8) fL Neut # (Auto) 6.4 (1.5-6.6) 10^3/uL Lymph # (Auto) 3.1 (1.5-3.5) 10^3/uL [place] # (Auto) 0.7 (0.0-1.0) 10^3/uL Eos # (Auto) 0.1 (0.0-0.7) 10^3/uL Baso # (Auto) 0.0 (0.0-0.1) 10^3/uL Absolute Nucleated RBC 0.00 x10^3/uL Nucleated RBC % 0.0 /100WBC Sodium 133 L (135-145) mmol/L Potassium 2.8 L (3.5-5.0) mmol/L Chloride 101 (101-111) mmol/L Carbon Dioxide 18 L (21-32) mmol/L Anion Gap 14.0 H (6-13) BUN 12 (6-20) mg/dL Creatinine 1.0 (0.4-1.0) mg/dL Estimated GFR (MDRD) 66 L (>89) Glucose 98 (70-100) mg/dL Calcium 9.6 (8.5-10.3) mg/dL Iron 45 (28-170) ug/dL TIBC 273 (250-450) ug/dL % Saturation 16 L (20-50) % Transferrin 195 (192-382) mg/dL Total Bilirubin 1.6 H (0.2-1.0) mg/dL AST 29 (10-42) IU/L ALT 39 (10-60) IU/L Alkaline Phosphatase 44 (42-121) IU/L Total Protein 7.8 (6.7-8.2) g/dL Albumin 5.0 (3.2-5.5) g/dL Globulin 2.8 (2.1-4.2) g/dL Albumin/Globulin Ratio 1.8 (1.0-2.2) Lipase 23 (22-51) U/L TSH (0.34-5.60) uIU/mL Urine Color Urine Clarity (CLEAR) Urine pH (5.0-7.5) PH Ur Specific [place] (1.002-1.030) Urine Protein (NEGATIVE) mg/dL Urine Glucose (UA) (NEGATIVE) mg/dL Urine Ketones (NEGATIVE) mg/dL Urine Occult Blood (NEGATIVE) Urine Nitrite (NEGATIVE) Urine Bilirubin (NEGATIVE) Urine Urobilinogen (NORMAL) E.U./dL Ur Leukocyte Esterase (NEGATIVE) Ur Microscopic Review Urine Culture Comments Urine HCG, Qual Blood Type Assessment/Plan - Problem List (1) Hyperemesis gravidarum Impression: Nausea has been well controlled since this am Able to tolerate midday meal without further N/V Feels better after nutrient repletion Offered overnight stay as medications cannot be filled on holiday Patient feels she has adequate antiemetic supply at home Ipava ativan was overly sedating Desires DC to home and declines DC meds Discharge order submitted. Will FU in clinic tomorrow or Sunday. Confirmed blood type is A pos
[2020-03-01 19:19] VITALS: BP 132/85
== END 2020-03-01 19:31 | disposition home or self-care (01) ==
LOC: ED 23:57 → MS2 03-01 04:28
PROVIDERS: ADMIT Obstetrics & Gynecology; ATTEND Obstetrics & Gynecology
DX: O21.1 Hyperemesis gravidarum with metabolic disturbance (principal); Z3A.01 Less than 8 weeks gestation of pregnancy; O99.011 Anemia complicating pregnancy, first trimester; D50.9 Iron deficiency anemia, unspecified; O99.341 Other mental disorders complicating pregnancy, first trimester; F41.9 Anxiety disorder, unspecified
CPT/HCPCS: 36415; 76801; 76817; 80048; 81003; 81025; 83540; 83690; 84466; 85027; 86900; 86901; 96361; 96365; 96366; 96367; 96375; 96376; 99284; 99285; A9270; G0378; J1200; J1750; J7040; J7120; 80053; 81001; 84443; 85025; 85610; 87086

== ENCOUNTER 2020-03-02 09:23 | Outpatient (CLI) | payer OTHER | END 2020-03-02 23:59 | disposition home or self-care (01) | LOC: LAB.WCP 09:23 | PROVIDERS: ATTEND Advanced Practice Midwife | DX: Z32.01 Encounter for pregnancy test, result positive (principal) | CPT/HCPCS: 36415; 84702 ==

== ENCOUNTER 2020-03-03 19:30 | Emergency (ER) | payer OTHER ==
[2020-03-03 20:17] LABS: CALCIUM 9.7 mg/dL (8.5-10.3); CREATININE 1.1 mg/dL (0.4-1.0)
[2020-03-03] MEDS ORDERED: ONDANSETRON 4 MG/2 ML VIAL IVP STA (20:25)
[2020-03-03] MEDS ORDERED: SODIUM CHLORIDE 0.9% 1,000 ML IV STA (20:25)
[2020-03-03] MEDS ORDERED: POTASSIUM CHLORIDE 20 MEQ TABLET PO STA (20:26)
--- NOTE | 2020-03-03 20:26 | ED Physician Documentation ---
PD HPI ABD PAIN - Stated complaint Stated Complaint: FEMALE - Chief complaint Chief Complaint: Abd Pain - History obtained from History obtained from: Patient (She had a medical termination, subsequent to that was told to take Vicodin because of the potential for cramping and after that started vomiting. Recent admission for hyperemesis and hypokalemia and vomiting got her very worried.) Review of Systems Constitutional: denies: Fever, Chills Throat: reports: Reviewed and negative Cardiac: reports: Reviewed and negative GI: reports: Nausea, Vomiting. 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 : Chronic bladder infection HEENT: None Psych: Anxiety Musculoskeletal: None Derm: None Other Past Medical History: Recently DX w/ Hypokalemia - Past Surgical History Past Surgical History: Yes General: Other Ortho: Knee replacement - Present Medications Home Medications: Ambulatory Orders Medication Instructions Recorded Confirmed Ondansetron Odt [Zofran] 4 mg TL Q6H PRN #10 tablet 08/11/19 03/03/20 Albuterol Sulf [Ventolin Hfa 2 puffs INH Q4H PRN 03/01/20 03/03/20 Inhaler] Fluticasone 110 Mcg [Flovent] 2 puffs INH BID 03/01/20 03/03/20 Vit No.129/Iron/Folic 1 tab PO DAILY 03/01/20 03/03/20 [ Tablet] Sertraline HCl 50 mg PO DAILY 03/01/20 03/03/20 - Allergies Allergies/Adverse Reactions: Allergies Allergy/AdvReac Type Severity Reaction Status Date / Time metoclopramide [From Reglan] AdvReac Headache Verified 03/03/20 19:59 - Social History Does the pt smoke?: No Smoking Status: Never smoker Does the pt drink ETOH?: No Does the pt have substance abuse?: No - Immunizations Immunizations are current?: Yes - POLST Patient has POLST: No POLST Status: Full Code PD ED PE NORMAL - Vitals Vital signs reviewed: Yes - General General: Alert and oriented X 3, No acute distress - Abdomen Abdomen: Soft, Non tender - Neuro Neuro: Alert and oriented X 3, Normal speech - Psych Psych: Normal mood, Normal affect Results - Vitals Vitals: Vital Signs - 24 hr 03/03/20 03/03/20 19:50 20:46 Temperature 36.8 C Heart Rate 75 78 Respiratory 16 16 Rate Blood Pressure 135/78 H 133/88 H O2 Saturation 99 100 Oxygen O2 Source Room air - Labs Labs: Laboratory Tests 03/03/20 20:01 Sodium 134 L Potassium 3.2 L Chloride 99 L Carbon Dioxide 20 L Anion Gap 15.0 H BUN 10 Creatinine 1.1 H Estimated GFR (MDRD) 59 L Glucose 99 Calcium 9.7 PD MEDICAL DECISION MAKING - ED course ED course: 30-year-old woman with now recurrent vomiting after taking a hydrocodone today. She was already tenuous because of hyperemesis and anxiety surrounding a medical miscarriage. Feeling much better after reassurance and some IV Zofran and fluids as well as a GI cocktail. Potassium was modestly low and repleted orally. Departure - Departure Disposition: 01 Home, Self Care Clinical Impression: Nausea and vomiting Qualifiers: Vomiting type: unspecified Vomiting Intractability: non-intractable Qualified Code(s): R11.2 - Nausea with vomiting, unspecified Condition: Good Record reviewed to determine appropriate education?: Yes Instructions: ED Nausea Vomiting Comments: Take the Zofran you have at home as needed for vomiting, again I do not expect too much more vomiting as long as you do not take any more hydrocodone. Return for new or worsening symptoms.
[2020-03-03] MEDS ORDERED: LIDOCAINE VISCOUS 2% 15 ML UDC MM STA (20:39)
[2020-03-03] MEDS ORDERED: MAG HYDROX/AL HYDROX/SIMETH 30 ML UDC PO STA (20:39)
[2020-03-03 21:33] VITALS: BP 130/70
== END 2020-03-03 21:33 | disposition home or self-care (01) ==
LOC: ED 19:30
DX: R11.2 Nausea with vomiting, unspecified (principal)
CPT/HCPCS: 36415; 80048; 96361; 96374; 99283; A9270

== ENCOUNTER 2020-03-09 08:00 | Outpatient (CLI) | payer OTHER | END 2020-03-09 23:59 | disposition home or self-care (01) | LOC: LAB.WCP 08:00 | PROVIDERS: ATTEND Advanced Practice Midwife | DX: Z33.2 Encounter for elective termination of pregnancy (principal) | CPT/HCPCS: 36415; 84702 ==

== ENCOUNTER 2020-03-12 08:00 | Outpatient (CLI) | payer OTHER | END 2020-03-12 08:01 | disposition home or self-care (01) | LOC: LAB.WCP 08:00 | PROVIDERS: ATTEND Advanced Practice Midwife | DX: Z33.2 Encounter for elective termination of pregnancy (principal) | CPT/HCPCS: 36415; 84702 ==

== ENCOUNTER 2020-03-19 08:00 | Outpatient (CLI) | payer OTHER | END 2020-03-19 23:59 | disposition home or self-care (01) | LOC: LAB.WCP 08:00 | PROVIDERS: ATTEND Advanced Practice Midwife | DX: Z33.2 Encounter for elective termination of pregnancy (principal) | CPT/HCPCS: 36415; 84702 ==

== ENCOUNTER 2020-04-08 08:49 | Emergency (ER) | payer OTHER ==
[2020-04-08] MEDS ORDERED: LORazepam 2 MG/ML VIAL IVP STA ×2 (10:00→13:19)
[2020-04-08] MEDS ORDERED: FOLIC ACID INJ 1 MG, THIAMINE INJ 100 MG, MAGNESIUM SULFATE 2 GM, MULTIVITAMIN 10 ML in... IV STA ×5 (10:00)
[2020-04-08 10:38] LABS: BASOPHILS % (AUTO) 0.3 %; EOSINOPHILS % (AUTO) 0.1 %; HGB - HEMOGLOBIN 13.6 g/dL (12.0-16.0); LYMPHOCYTES # (AUTO) 1.1 10^3/uL (1.5-3.5); LYMPHOCYTES % (AUTO) 14.1 %; MEAN CORPUSCULAR HEMOGLOBIN 30.2 pg (27.0-31.0); MEAN CORPUSCULAR HGB CONC 34.6 g/dL (32.0-36.0); MEAN CORPUSCULAR VOLUME 87.1 fL (81.0-99.0); MEAN PLATELET VOLUME 10.3 fL (7.9-10.8); MONOCYTES # (AUTO) 0.4 10^3/uL (0.0-1.0); NEUTROPHILS # (AUTO) 6.2 10^3/uL (1.5-6.6); NEUTROPHILS % (AUTO) 79.9 %; PLT - PLATELET COUNT 221 10^3/uL (130-450); RED BLOOD COUNT 4.51 10^6/uL (4.20-5.40); RED CELL DISTRIBUTION WIDTH 12.8 % (12.0-15.0); WHITE BLOOD COUNT 7.8 x10^3/uL (4.8-10.8)
[2020-04-08 10:44] LABS: BILIRUBIN,URINE NEGATIVE (NEGATIVE); GLUCOSE, URINE (UA) NEGATIVE (NEGATIVE); KETONES,URINE (UA) >=80 mg/dL (NEGATIVE); LEUKOCYTE ESTERASE, URINE NEGATIVE (NEGATIVE); NITRITE,URINE NEGATIVE (NEGATIVE); OCCULT BLOOD,URINE NEGATIVE (NEGATIVE); PROTEIN,URINE NEGATIVE (NEGATIVE); UROBILINOGEN,URINE 0.2 (NORMAL) E.U./dL (NORMAL)
[2020-04-08 10:54] LABS: ALBUMIN 5.2 g/dL (3.2-5.5); ALBUMIN/GLOBULIN RATIO 1.9 (1.0-2.2); CREATININE 1.1 mg/dL (0.4-1.0); TOTAL PROTEIN 7.9 g/dL (6.7-8.2)
[2020-04-08] MEDS ORDERED: POTASSIUM CHLORIDE 20 MEQ TABLET PO STA (11:09)
[2020-04-08] MEDS ORDERED: SODIUM CHLORIDE 0.9% 1,000 ML IV STA (11:11)
[2020-04-08 11:12] LABS: CLARITY,URINE CLEAR (CLEAR)
[2020-04-08] MEDS ORDERED: EPINEPHrine 1 MG/ML AMP ONE (11:15)
--- NOTE | 2020-04-08 13:05 | ED Physician Documentation ---
History of Present Illness - Stated complaint Stated Complaint: PANIC ATTACK - Chief complaint Chief Complaint: General - History obtained from History obtained from: Patient, Family - History of Present Illness Timing: How many weeks ago (5) - Additonal information Additional information: 30-year-old female with a miscarriage 5 weeks ago has developed acute anxiety related to the incident of the miscarriage itself. She has been having some PTSD related to this incident and she is extremely anxious today. Review of Systems Constitutional: reports: Fatigue. denies: Fever Eyes: denies: Decreased vision Ears: denies: Ear pain Nose: denies: Rhinorrhea / runny nose, Congestion Throat: reports: Sore throat Cardiac: denies: Chest pain / pressure, Palpitations Respiratory: reports: Dyspnea. denies: Cough GI: reports: Nausea. denies: Abdominal Pain, Vomiting : denies: Dysuria, Frequency Skin: denies: Rash Musculoskeletal: denies: Neck pain, Back pain, Extremity pain Neurologic: reports: Numbness. 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 : Chronic bladder infection HEENT: None Psych: Anxiety Musculoskeletal: None Derm: None - Past Surgical History Past Surgical History: Yes General: Other Ortho: Knee replacement /OFFICIAL GREETER: Dilation and currettage - Present Medications Home Medications: Ambulatory Orders Medication Instructions Recorded Confirmed Ondansetron Odt [Zofran] 4 mg TL Q6H PRN #10 tablet 08/11/19 03/03/20 Albuterol Sulf [Ventolin Hfa 2 puffs INH Q4H PRN 03/01/20 03/03/20 Inhaler] Fluticasone 110 Mcg [Flovent] 2 puffs INH BID 03/01/20 03/03/20 Vit No.129/Iron/Folic 1 tab PO DAILY 03/01/20 03/03/20 [ Tablet] Sertraline HCl 50 mg PO DAILY 03/01/20 03/03/20 Lorazepam [Ativan] 1 mg PO Q6HR PRN #20 tablet 04/08/20 - Allergies Allergies/Adverse Reactions: Allergies Allergy/AdvReac Type Severity Reaction Status Date / Time metoclopramide [From Reglan] AdvReac Headache Verified 05/27/20 19:59 - Social History Does the pt smoke?: No Smoking Status: Never smoker Does the pt drink ETOH?: No Does the pt have substance abuse?: No - Immunizations Immunizations are current?: Yes - POLST Patient has POLST: No POLST Status: Full Code PD ED PE NORMAL - Vitals Vital signs reviewed: Yes (normal ) - General General: Alert and oriented X 3, Well developed/nourished, Other (acutely anxious hyperventilating female is wide eyed and talkative) - HEENT HEENT: Atraumatic, PERRL, EOMI, Ears normal - Neck Neck: Supple, no meningeal sign, No bony TTP - Cardiac Cardiac: RRR, No murmur - Respiratory Respiratory: No respiratory distress, Clear bilaterally - Abdomen Abdomen: Normal bowel sounds, Soft, Non tender, Non distended, No organomegaly - Back Back: No CVA TTP, No spinal TTP - Derm Derm: Normal color, Warm and dry, No rash - Extremities Extremities: No deformity, Normal ROM s pain, No edema, No calf tenderness / cord - Neuro Neuro: Alert and oriented X 3, palliative medicine physician 2-12 intact, No motor deficit, No sensory deficit, Normal speech Eye Opening: Spontaneous Motor: Obeys Commands Verbal: Oriented GCS Score: 15 - Psych Psych: Other (mood is anxious and the affect is labile ) Results - Vitals Vitals: Vital Signs - 24 hr 04/08/20 04/08/20 04/08/20 08:58 09:06 12:21 Temperature 36.6 C Heart Rate 85 80 97 Respiratory 22 20 17 Rate Blood Pressure 119/80 124/92 H 127/82 H O2 Saturation 99 99 99 04/08/20 04/08/20 13:15 14:13 Temperature 36.9 C Heart Rate 89 90 Respiratory 18 22 Rate Blood Pressure 123/80 114/78 O2 Saturation 97 97 Oxygen O2 Source Room air - Labs Labs: Laboratory Tests 04/08/20 04/08/20 04/08/20 10:08 10:08 10:08 WBC 7.8 RBC 4.51 Hgb 13.6 Hct 39.3 MCV 87.1 MCH 30.2 MCHC 34.6 RDW 12.8 Plt Count 221 MPV 10.3 Neut # (Auto) 6.2 Lymph # (Auto) 1.1 L [place] # (Auto) 0.4 Eos # (Auto) 0.0 Baso # (Auto) 0.0 Absolute Nucleated RBC 0.00 Nucleated RBC % 0.0 Sodium 137 Potassium 3.2 L Chloride 102 Carbon Dioxide 21 Anion Gap 14.0 H BUN 16 Creatinine 1.1 H Estimated GFR (MDRD) 59 L Glucose 104 H Calcium 10.0 Total Bilirubin 2.0 H AST 19 ALT 21 Alkaline Phosphatase 37 L Total Protein 7.9 Albumin 5.2 Globulin 2.7 Albumin/Globulin Ratio 1.9 Lipase 24 HCG, Quant < 0.60 Urine Color Urine Clarity Urine pH Ur Specific [place] Urine Protein Urine Glucose (UA) Urine Ketones Urine Occult Blood Urine Nitrite Urine Bilirubin Urine Urobilinogen Ur Leukocyte Esterase Ur Microscopic Review Urine Culture Comments 04/08/20 10:08 WBC RBC Hgb Hct MCV MCH MCHC RDW Plt Count MPV Neut # (Auto) Lymph # (Auto) [place] # (Auto) Eos # (Auto) Baso # (Auto) Absolute Nucleated RBC Nucleated RBC % Sodium Potassium Chloride Carbon Dioxide Anion Gap BUN Creatinine Estimated GFR (MDRD) Glucose Calcium Total Bilirubin AST ALT Alkaline Phosphatase Total Protein Albumin Globulin Albumin/Globulin Ratio Lipase HCG, Quant Urine Color YELLOW Urine Clarity CLEAR Urine pH 7.0 Ur Specific [place] 1.010 Urine Protein NEGATIVE Urine Glucose (UA) NEGATIVE Urine Ketones >=80 H Urine Occult Blood NEGATIVE Urine Nitrite NEGATIVE Urine Bilirubin NEGATIVE Urine Urobilinogen 0.2 (NORMAL) Ur Leukocyte Esterase NEGATIVE Ur Microscopic Review NOT INDICATED Urine Culture Comments NOT INDICATED PD MEDICAL DECISION MAKING - ED course Complexity details: reviewed old records, reviewed results, re-evaluated patient, considered differential, d/w patient, d/w family ED course: 30-year-old female with a recent miscarriage of a blighted ovum has become anxious over the past 5 weeks and she has persistence of anxiety and today she has developed some pelvic cramping and has become increasingly anxious. She comes to the emergency department today with acute anxiety. She is treated with intravenous Ativan with some improvement. She has an experience with recent treatments for hyperemesis that included the use of Phenergan. She has had a prior reaction to metoclopramide and the suspicion is this reaction to Phenergan is similar. She had a dysphoric reaction wanting to leave. She has completed the miscarriage and her hCG is now <0.60. She has some PTSD when she sees the banana bag which was ordered to go in IV. As the medication was begun she developed a bright red face and had exacerbation of anxiety. She has further improvement with the second dose of ativan and we have discussed short term use of PRN ativan. The banana bag was discontinued and saline is infused. She has marked improvement at the time of discharge. Departure - Departure Disposition: 01 Home, Self Care Clinical Impression: Anxiety Condition: Stable Instructions: ED Stress React, ED Panic Attack Follow-Up: Cristina Pedersen DO [Primary Care Provider] - Prescriptions: Lorazepam [Ativan] 1 mg PO Q6HR PRN #20 tablet PRN Reason: Anxiety Discharge Date/Time: 04/08/20 14:29
[2020-04-08 14:13] VITALS: BP 114/78
== END 2020-04-08 14:29 | disposition home or self-care (01) ==
LOC: ED 08:49
DX: F41.9 Anxiety disorder, unspecified (principal)
CPT/HCPCS: 36415; 80053; 81003; 83690; 84702; 85025; 96361; 96365; 96375; 96376; 99283; 99284; A9270; J2060; J3411; 81001; 87086

== ENCOUNTER 2020-05-29 08:31 | Emergency (ER) | payer OTHER ==
[2020-05-29] MEDS ORDERED: SODIUM CHLORIDE 0.9% 1,000 ML IV STA (09:15)
--- NOTE | 2020-05-29 09:17 | ED Physician Documentation ---
PD HPI FEMALE - Stated complaint Stated Complaint: N/V - Chief complaint Chief Complaint: General - History obtained from History obtained from: Patient - History of Present Illness Timing - onset: Today Timing - duration: Hours Timing - details: Gradual onset, Still present Associated symptoms: Pelvic pain Contributing factors: control (patch). No: OB-CANNERY TENDER ENGINEER History: G (2), P (1), Miscarriage(s) (1) Similar symptoms before: Diagnosis (panic attack) Recently seen: Not recently seen - Additional information Additional information: 30-year-old female who has had a miscarriage in February of this year with a blighted ovum developed some PTSD related to the miscarriage. She has been having some issue with anxiety since then and has had some success with use of Ativan. Today she is on her menstrual period and she is feeling pelvic cramping and this is triggered her to panic. The patient indicates that she was getting some counseling and that she felt that this helped quite a bit and in fact was discharged from counseling and then has developed symptoms again. She has gone back to see her counselor. Review of Systems Constitutional: denies: Fever Eyes: denies: Decreased vision Ears: denies: Ear pain Nose: reports: Rhinorrhea / runny nose, Congestion, Sinus pressure / pain Throat: denies: Sore throat Cardiac: denies: Chest pain / pressure, Palpitations Respiratory: reports: Cough. denies: Dyspnea GI: reports: Nausea. 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 : Chronic bladder infection HEENT: None Psych: Anxiety Musculoskeletal: None Derm: None - Past Surgical History Past Surgical History: Yes General: Other Ortho: Knee replacement /CANNERY TENDER ENGINEER: Dilation and currettage - Present Medications Home Medications: Ambulatory Orders Medication Instructions Recorded Confirmed Ondansetron Odt [Zofran] 4 mg TL Q6H PRN #10 tablet 08/11/19 03/03/20 Lorazepam [Ativan] 1 mg PO Q6HR PRN #20 tablet 04/08/20 - Allergies Allergies/Adverse Reactions: Allergies Allergy/AdvReac Type Severity Reaction Status Date / Time niacin Allergy Unknown Verified 05/29/20 08:52 metoclopramide [From Reglan] AdvReac Headache Verified 05/29/20 08:51 - Social History Does the pt smoke?: No Smoking Status: Never smoker Does the pt drink ETOH?: No Does the pt have substance abuse?: No - Immunizations Immunizations are current?: Yes - POLST Patient has POLST: No POLST Status: Full Code PD ED PE NORMAL - Vitals Vital signs reviewed: Yes (Hypertensive) - General General: Alert and oriented X 3, Well developed/nourished, Other (Anxious appearing female hyperventilating and periodically ramping up behavior.) - HEENT HEENT: Atraumatic, PERRL, EOMI, Ears normal, Moist mucous membranes, Pharynx benign, Dentition benign - Neck Neck: Supple, no meningeal sign, No bony TTP - Cardiac Cardiac: RRR, No murmur - Respiratory Respiratory: No respiratory distress, Clear bilaterally - Abdomen Abdomen: Normal bowel sounds, Soft, Non tender, Non distended, No organomegaly - Back Back: No CVA TTP, No spinal TTP - Derm Derm: Normal color, Warm and dry, No rash - Extremities Extremities: No deformity, No edema - Neuro Neuro: Alert and oriented X 3, funnel setter 2-12 intact, No motor deficit, No sensory deficit, Normal speech Eye Opening: Spontaneous Motor: Obeys Commands Verbal: Oriented GCS Score: 15 - Psych Psych: Normal mood, Normal affect Results - Vitals Vitals: Vital Signs - 24 hr 05/29/20 05/29/20 08:44 10:51 Temperature 36.7 C Heart Rate 82 74 Respiratory 16 18 Rate Blood Pressure 135/80 H 123/67 O2 Saturation 97 100 Oxygen O2 Source Room air - Labs Labs: Laboratory Tests 05/29/20 05/29/20 05/29/20 08:57 08:57 08:57 WBC 9.8 RBC 4.34 Hgb 13.4 Hct 38.3 MCV 88.2 MCH 30.9 MCHC 35.0 RDW 12.2 Plt Count 246 MPV 10.0 Neut # (Auto) 7.9 H Lymph # (Auto) 1.5 [place] # (Auto) 0.4 Eos # (Auto) 0.1 Baso # (Auto) 0.0 Absolute Nucleated RBC 0.00 Nucleated RBC % 0.0 Sodium 137 Potassium 3.4 L Chloride 103 Carbon Dioxide 23 Anion Gap 11.0 BUN 15 Creatinine 0.9 Estimated GFR (MDRD) 75 L Glucose 111 H Calcium 9.7 Total Bilirubin 0.8 AST 16 ALT 14 Alkaline Phosphatase 45 Total Protein 7.9 Albumin 5.1 Globulin 2.8 Albumin/Globulin Ratio 1.8 Lipase 26 Urine Color LIGHT YELLOW Urine Clarity CLEAR Urine pH 6.5 Ur Specific [place] <=1.005 Urine Protein NEGATIVE Urine Glucose (UA) NEGATIVE Urine Ketones NEGATIVE Urine Occult Blood MODERATE H Urine Nitrite NEGATIVE Urine Bilirubin NEGATIVE Urine Urobilinogen 0.2 (NORMAL) Ur Leukocyte Esterase NEGATIVE Urine RBC 0-5 Urine WBC 0-3 Ur Squamous Epith Cells MANY Squamous H Urine Bacteria Moderate H Ur Microscopic Review INDICATED Urine Culture Comments NOT INDICATED Urine HCG, Qual NEGATIVE PD MEDICAL DECISION MAKING - ED course Complexity details: reviewed results, re-evaluated patient, considered differential, d/w patient ED course: 30-year-old female with acute panic attack has normal-appearing routine blood work and urinalysis and physical examination. She is complaining of some nasal congestion and ear popping and I am not seeing any evidence of any inflammation to the ear nose or throat. She is administered Ativan intravenously and has some improvement with that significantly. She is encouraged to use Nasacort for her nasal congestion. She is encouraged to use the Ativan as needed and to follow-up with counseling. Departure - Departure Disposition: 01 Home, Self Care Clinical Impression: Anxiety Eustachian tube dysfunction Qualifiers: Laterality: bilateral Qualified Code(s): H69.83 - Other specified disorders of Eustachian tube, bilateral Condition: Stable Instructions: PTSD, ED Stress React, ED Panic Attack Follow-Up: Cristina Pedersen DO [Primary Care Provider] - Comments: For your symptoms of nasal congestion and phlegm production my recommendation is to use nasal viky available [id number] twice per day to control your symptoms. Discharge Date/Time: 05/29/20 11:00
[2020-05-29 09:26] LABS: BASOPHILS % (AUTO) 0.3 %; EOSINOPHILS # (AUTO) 0.1 10^3/uL (0.0-0.7); EOSINOPHILS % (AUTO) 0.5 %; HGB - HEMOGLOBIN 13.4 g/dL (12.0-16.0); LYMPHOCYTES # (AUTO) 1.5 10^3/uL (1.5-3.5); LYMPHOCYTES % (AUTO) 14.8 %; MEAN CORPUSCULAR HEMOGLOBIN 30.9 pg (27.0-31.0); MEAN CORPUSCULAR VOLUME 88.2 fL (81.0-99.0); MONOCYTES # (AUTO) 0.4 10^3/uL (0.0-1.0); MONOCYTES % (AUTO) 3.7 %; NEUTROPHILS # (AUTO) 7.9 10^3/uL (1.5-6.6); NEUTROPHILS % (AUTO) 80.2 %; PLT - PLATELET COUNT 246 10^3/uL (130-450); RED BLOOD COUNT 4.34 10^6/uL (4.20-5.40); RED CELL DISTRIBUTION WIDTH 12.2 % (12.0-15.0); WHITE BLOOD COUNT 9.8 x10^3/uL (4.8-10.8)
[2020-05-29 09:28] LABS: BILIRUBIN,URINE NEGATIVE (NEGATIVE); GLUCOSE, URINE (UA) NEGATIVE (NEGATIVE); KETONES,URINE (UA) NEGATIVE (NEGATIVE); LEUKOCYTE ESTERASE, URINE NEGATIVE (NEGATIVE); NITRITE,URINE NEGATIVE (NEGATIVE); OCCULT BLOOD,URINE MODERATE (NEGATIVE); PH,URINE 6.5 PH (5.0-7.5); PROTEIN,URINE NEGATIVE (NEGATIVE); UROBILINOGEN,URINE 0.2 (NORMAL) E.U./dL (NORMAL)
[2020-05-29 09:34] LABS: CLARITY,URINE CLEAR (CLEAR); HCG UR QUAL NEGATIVE
[2020-05-29 09:39] LABS: BACTERIA,URINE Moderate /HPF (None Seen); RBC,URINE 0-5 /HPF (0-5); SQUAMOUS EPITHELIAL CELL,UR MANY Squamous (<= Few)
[2020-05-29 09:42] LABS: ALBUMIN 5.1 g/dL (3.2-5.5); ALBUMIN/GLOBULIN RATIO 1.8 (1.0-2.2); BILIRUBIN,TOTAL 0.8 mg/dL (0.2-1.0); CALCIUM 9.7 mg/dL (8.5-10.3); CREATININE 0.9 mg/dL (0.4-1.0); TOTAL PROTEIN 7.9 g/dL (6.7-8.2)
[2020-05-29] MEDS ORDERED: LORazepam 2 MG/ML VIAL IVP STA (10:10)
[2020-05-29 10:53] VITALS: BP 123/67
== END 2020-05-29 11:00 | disposition home or self-care (01) ==
LOC: ED 08:31
DX: F41.0 Panic disorder [episodic paroxysmal anxiety] (principal); H69.83 Other specified disorders of Eustachian tube, bilateral; F41.9 Anxiety disorder, unspecified
CPT/HCPCS: 36415; 80053; 81001; 81025; 83690; 85025; 96374; 99283; 99284; J2060; 81003; 87086

== ENCOUNTER 2021-02-16 08:00 | Outpatient (CLI) | payer OTHER | END 2021-02-16 23:59 | disposition home or self-care (01) | LOC: LAB.N 08:00 | PROVIDERS: ATTEND Nurse Practitioner | DX: R10.9 Unspecified abdominal pain (principal) | CPT/HCPCS: 87086; 87181 ==

== ENCOUNTER 2021-02-17 08:00 | Outpatient (CLI) | payer OTHER ==
[2021-02-17 15:38] LABS: BILIRUBIN,URINE NEGATIVE (NEGATIVE); GLUCOSE, URINE (UA) NEGATIVE (NEGATIVE); KETONES,URINE (UA) NEGATIVE (NEGATIVE); LEUKOCYTE ESTERASE, URINE SMALL (NEGATIVE); NITRITE,URINE NEGATIVE (NEGATIVE); OCCULT BLOOD,URINE MODERATE (NEGATIVE); PH,URINE 5.5 PH (5.0-7.5); PROTEIN,URINE TRACE mg/dL (NEGATIVE); UROBILINOGEN,URINE 0.2 (NORMAL) E.U./dL (NORMAL)
[2021-02-17 15:50] LABS: CLARITY,URINE CLEAR (CLEAR)
[2021-02-17 16:01] LABS: BACTERIA,URINE Moderate /HPF (None Seen); RBC,URINE 0-5 /HPF (0-5); SQUAMOUS EPITHELIAL CELL,UR RARE Squamous (<= Few); WBC,URINE >25 /HPF (0-5)
== END 2021-02-17 23:59 | disposition home or self-care (01) ==
LOC: LAB.WC 08:00
PROVIDERS: ATTEND Nurse Practitioner Obstetrics & Gynecology
DX: R30.0 Dysuria (principal)
CPT/HCPCS: 81001; 87086; 87181

== ENCOUNTER 2021-07-09 16:54 | Emergency (ER) | payer OTHER ==
[2021-07-09 17:04] VITALS: BP 136/92
[2021-07-09 17:10] LABS: BILIRUBIN,URINE NEGATIVE (NEGATIVE); GLUCOSE, URINE (UA) NEGATIVE (NEGATIVE); KETONES,URINE (UA) NEGATIVE (NEGATIVE); LEUKOCYTE ESTERASE, URINE SMALL (NEGATIVE); NITRITE,URINE NEGATIVE (NEGATIVE); OCCULT BLOOD,URINE MODERATE (NEGATIVE); PROTEIN,URINE 100 mg/dL (NEGATIVE); UROBILINOGEN,URINE 0.2 (NORMAL) E.U./dL (NORMAL)
[2021-07-09 17:12] LABS: CLARITY,URINE HAZY (CLEAR); HCG UR QUAL NEGATIVE
[2021-07-09 17:18] LABS: BACTERIA,URINE Many /HPF (None Seen); SQUAMOUS EPITHELIAL CELL,UR MANY Squamous (<= Few); WBC,URINE >25 /HPF (0-5)
--- NOTE | 2021-07-09 17:32 | ED Physician Documentation ---
History of Present Illness - Stated complaint Stated Complaint: FEMALE - Chief complaint Chief Complaint: UTI - Additonal information Additional information: 31-year-old female presents emergency department with intermittent dysuria urgency and frequency began about 1 week ago. This did follow recent sexual activity. She has been trying to flush her system out but has not been effective. Does have a history of urinary tract X about 4 months ago. Also reports remote history of ureter reflux. 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 : Chronic bladder infection HEENT: None Psych: Anxiety Musculoskeletal: None Derm: None - Past Surgical History Past Surgical History: Yes General: Other Ortho: Knee replacement /TELEVISION PICTURE TUBE REBUILDER: Dilation and currettage - Present Medications Home Medications: Ambulatory Orders Medication Instructions Recorded Confirmed Ondansetron Odt [Zofran] 4 mg TL Q6H PRN #10 tablet 08/11/19 03/03/20 Lorazepam [Ativan] 1 mg PO Q6HR PRN #20 tablet 04/08/20 Nitrofurantoin [Macrobid] 100 mg PO BID #14 cap 07/09/21 - Allergies Allergies/Adverse Reactions: Allergies Allergy/AdvReac Type Severity Reaction Status Date / Time niacin Allergy Unknown Verified 07/09/21 17:04 metoclopramide [From Reglan] AdvReac Headache Verified 07/09/21 17:04 - Social History Does the pt smoke?: No Smoking Status: Never smoker Does the pt drink ETOH?: No Does the pt have substance abuse?: No - Immunizations Immunizations are current?: Yes - POLST Patient has POLST: No POLST Status: Full Code PD ED PE NORMAL - General General: Alert and oriented X 3, No acute distress - HEENT HEENT: PERRL - Neck Neck: Supple, no meningeal sign - Cardiac Cardiac: RRR, No murmur - Respiratory Respiratory: Clear bilaterally - Abdomen Abdomen: Normal bowel sounds, Soft. No: Non tender (Tenderness palpation over the bladder.) - Back Back: No CVA TTP Results - Vitals Vitals: Vital Signs - 24 hr 07/09/21 16:56 Temperature 37.0 C Heart Rate 89 Respiratory 16 Rate Blood Pressure 136/92 H O2 Saturation 97 Oxygen O2 Source Room air - Labs Labs: Laboratory Tests 07/09/21 17:01 Urine Color YELLOW Urine Clarity HAZY Urine pH 6.0 Ur Specific [place] 1.010 Urine Protein 100 H Urine Glucose (UA) NEGATIVE Urine Ketones NEGATIVE Urine Occult Blood MODERATE H Urine Nitrite NEGATIVE Urine Bilirubin NEGATIVE Urine Urobilinogen 0.2 (NORMAL) Ur Leukocyte Esterase SMALL H Urine RBC 11-25 H Urine WBC >25 H Ur Squamous Epith Cells MANY Squamous H Urine Bacteria Many H Ur Microscopic Review INDICATED Urine Culture Comments NOT INDICATED Urine HCG, Qual NEGATIVE PD MEDICAL DECISION MAKING - ED course Complexity details: considered differential, d/w patient ED course: 31-year-old female with acute dysuria urgency and frequency began intermittently about 1 week ago but now constant. UA is most consistent with acute cystitis. No findings suggest a sending infection. Macrobid sent electronically [facility] in [place]. Emergent worrisome return precautions were discussed. Departure - Departure Disposition: 01 Home, Self Care Clinical Impression: Acute cystitis Qualifiers: Hematuria presence: with hematuria Qualified Code(s): N30.01 - Acute cystitis with hematuria Condition: Stable Record reviewed to determine appropriate education?: Yes Instructions: ED Infec Bladder Female Ch Prescriptions: Nitrofurantoin [Macrobid] 100 mg PO BID #14 cap Comments: Willow did have a urinary tract infection. Please fill the prescription for the antibiotic that was electronically sent to [facility] in [place]. If your symptoms are not improving the next 24 to 48 hours, you develop fevers, have flank pain vomiting or failure to make appropriate amounts of urine then please return immediately to the ER for a second evaluation.
== END 2021-07-09 17:42 | disposition home or self-care (01) ==
LOC: ED 16:54
DX: N30.01 Acute cystitis with hematuria (principal)
CPT/HCPCS: 81001; 81003; 81025; 87086; 99283; 99284

== ENCOUNTER 2021-08-05 17:30 | Outpatient (CLI) | payer OTHER ==
--- NOTE | 2021-08-11 02:22 | XRAY Report ---
PROCEDURE: Wrist 3 View LT INDICATIONS: CONTUSION OF LEFT WRIST TECHNIQUE: 4 views of the wrist were acquired. Images became available for interpretation on 2020 COMPARISON: None FINDINGS: Bones: No fractures or dislocations. No suspicious bony lesions. Scaphoid view: No visualized fracture. Soft tissues: No suspicious soft tissue calcifications. IMPRESSION: No visualized acute fracture or dislocation. However, occult injury cannot be excluded. Recommend alma rt interval imaging follow-up in 7-10 days as clinically indicated for additional evaluation. Reviewed by: Allison Rea MD on 08/11/2021 1:45 AM PDT Approved by: Allison Rea MD on 08/11/2021 1:45 AM PDT Station ID: [id number]
== END 2021-08-05 23:59 | disposition home or self-care (01) ==
LOC: DI.N 17:30
PROVIDERS: ATTEND Family Medicine
DX: S60.212A Contusion of left wrist, initial encounter (principal)

== ENCOUNTER 2022-11-17 07:54 | Outpatient (CLI) | payer OTHER ==
--- NOTE | 2022-11-17 12:10 | XRAY Report ---
PROCEDURE: Knee 3 View LT INDICATIONS: CONTUSION OF LEFT KNEE TECHNIQUE: 3 views of the left knee(s) were acquired. COMPARISON: None. FINDINGS: Bones: No fractures or dislocations. No patella subluxation. No suspicious bony lesions. Soft tissues: No joint effusion. No suspicious soft tissue calcifications. IMPRESSION: No left knee fracture or dislocation. No significant joint effusion. No gross soft tissue abnormalities. Reviewed by: Santos Jara MD on 11/17/2022 12:09 PM PST Approved by: Santos Jara MD on 11/17/2022 12:09 PM PST Station ID: [id number]
== END 2022-11-17 07:55 | disposition home or self-care (01) ==
LOC: DI 07:54
PROVIDERS: ATTEND Physician Assistant
DX: S80.02XA Contusion of left knee, initial encounter (principal)

== ENCOUNTER 2023-03-09 08:00 | Outpatient (CLI) | payer OTHER ==
[2023-03-09 20:35] LABS: BACTERIAL VAGINOSIS DNA NEGATIVE (NEGATIVE); CANDIDA GLABRATA DNA NEGATIVE (NEGATIVE); CANDIDA GROUP DNA NEGATIVE (NEGATIVE); CANDIDA KRUSEI DNA NEGATIVE (NEGATIVE); TRICHOMONAS VAGINALIS DNA NEGATIVE (NEGATIVE)
[2023-03-09 22:45] LABS: CHLAMYDIA TRACHOMATIS DNA NEGATIVE (NEGATIVE); NEISSERIA GONORRHOEAE DNA NEGATIVE (NEGATIVE)
== END 2023-03-09 23:59 | disposition home or self-care (01) ==
LOC: LAB 08:00
PROVIDERS: ATTEND Nurse Practitioner
DX: Z11.3 Encounter for screening for infections with a predominantly sexual mode of transmission (principal); N89.8 Other specified noninflammatory disorders of vagina
CPT/HCPCS: 81514; 87491; 87591; 87661

== ENCOUNTER 2023-03-26 14:49 | Outpatient (CLI) | payer OTHER ==
[2023-03-26 15:19] LABS: POTASSIUM 3.3 mmol/L (3.5-5.0)
[2023-03-26 15:39] LABS: THYROID STIMULATING HORMONE 0.72 uIU/mL (0.34-5.60)
[2023-03-26 15:47] LABS: PROLACTIN 18.11 ng/mL
[2023-03-26 16:09] LABS: FOLLICLE STIMULATING HORMONE 5.89 mIU/mL
[2023-03-26 16:11] LABS: LUTEINIZING HORMONE 5.31 mIU/mL
[2023-03-26 20:36] LABS: ESTIMATED AVERAGE GLUCOSE 108 mg/dL (70-100); HEMOGLOBIN A1c% 5.4 % (4.27-6.07)
[2023-03-27 07:09] LABS: PROGESTERONE 0.2 ng/mL (.)
[2023-03-28 14:09] LABS: FREE TESTOSTERONE(DIRECT) 3.5 pg/mL (0.0-4.2); SEX HORM BINDING GLOB SERUM 49.6 nmol/L (24.6-122.0)
== END 2023-03-26 14:50 | disposition home or self-care (01) ==
LOC: LAB 14:49
PROVIDERS: ATTEND Nurse Practitioner
DX: N92.6 Irregular menstruation, unspecified (principal); Z87.448 Personal history of other diseases of urinary system; Z83.3 Family history of diabetes mellitus
CPT/HCPCS: 36415; 80048; 82397; 82627; 82670; 83001; 83002; 83036; 83498; 84144; 84146; 84270; 84402; 84403; 84443

== ENCOUNTER 2023-04-09 07:52 | Outpatient (CLI) | payer OTHER | END 2023-04-09 07:53 | disposition home or self-care (01) | LOC: LAB 07:52 | PROVIDERS: ATTEND Nurse Practitioner | DX: R94.4 Abnormal results of kidney function studies (principal); R79.9 Abnormal finding of blood chemistry, unspecified | CPT/HCPCS: 36415; 82533 ==

== ENCOUNTER 2023-04-13 15:07 | Outpatient (CLI) | payer OTHER ==
--- NOTE | 2023-04-13 19:07 | Ultrasound Report ---
PROCEDURE: Retroperitoneal INDICATIONS: DECREASED RENAL FUNCTION TECHNIQUE: Real-time scanning was performed of the retroperitoneal organs, with image documentation. COMPARISON: None. FINDINGS: Kidneys: Kidneys are normal in size. Right kidney measures 10.6 cm long; left kidney measures 9.4 c m long. Right renal cortical thickness is 1.2 cm; left renal cortical thickness is 2.3 cm. No solid masses, hydronephrosis, or nephrolithiasis. Bladder: Pre-void bladder volume is 304 mL. Post-void residual is in mL. Pre-void images demonstra te no intraluminal masses or stones. On pre-void images, bilateral ureteral jets are noted with colo r Doppler interrogation. (Of note, ureteral jets may not be detectable in up to 25% of cases due to insufficient differences in specific gravity between ureteral and bladder urine). Miscellaneous: No free abdominal fluid. IMPRESSION: Mild right renal cortical thinning. Normal bilateral renal echotexture. No hydronephrosis Reviewed by: Geovanny Cordon MD on 04/13/2023 6:06 PM KANDIS Approved by: Geovanny Cordon MD on 04/13/2023 6:06 PM [place] Station ID: [id number]
== END 2023-04-13 15:08 | disposition home or self-care (01) ==
LOC: DI 15:07
PROVIDERS: ATTEND Nurse Practitioner
DX: R94.4 Abnormal results of kidney function studies (principal); R89.9 Unspecified abnormal finding in specimens from other organs, systems and tissues

== ENCOUNTER 2023-04-16 08:00 | Outpatient (CLI) | payer OTHER ==
[2023-04-16 16:05] LABS: BILIRUBIN,URINE NEGATIVE (NEGATIVE); GLUCOSE, URINE (UA) NEGATIVE (NEGATIVE); KETONES,URINE (UA) NEGATIVE (NEGATIVE); LEUKOCYTE ESTERASE, URINE NEGATIVE (NEGATIVE); NITRITE,URINE NEGATIVE (NEGATIVE); OCCULT BLOOD,URINE NEGATIVE (NEGATIVE); PH,URINE 6.5 PH (5.0-7.5); PROTEIN,URINE NEGATIVE (NEGATIVE); UROBILINOGEN,URINE 0.2 (NORMAL) E.U./dL (NORMAL)
[2023-04-16 16:09] LABS: CLARITY,URINE CLEAR (CLEAR)
[2023-04-16 16:52] LABS: BACTERIA,URINE Rare /HPF (None Seen); RBC,URINE 0-5 /HPF (0-5); SQUAMOUS EPITHELIAL CELL,UR FEW Squamous (<= Few); WBC,URINE 0-3 /HPF (0-5)
== END 2023-04-16 23:59 | disposition home or self-care (01) ==
LOC: LAB.WC 08:00
PROVIDERS: ATTEND Nurse Practitioner
DX: R35.0 Frequency of micturition (principal)
CPT/HCPCS: 81001; 87086

== ENCOUNTER 2023-06-01 12:23 | Outpatient (CLI) | payer OTHER | END 2023-06-01 12:24 | disposition home or self-care (01) | LOC: LAB 12:23 | PROVIDERS: ATTEND Nurse Practitioner | DX: N91.2 Amenorrhea, unspecified (principal) | CPT/HCPCS: 36415; 84702 ==

== ENCOUNTER 2023-06-03 09:58 | Outpatient (CLI) | payer OTHER ==
[2023-06-03 10:20] LABS: BILIRUBIN,URINE NEGATIVE (NEGATIVE); GLUCOSE, URINE (UA) NEGATIVE (NEGATIVE); KETONES,URINE (UA) NEGATIVE (NEGATIVE); LEUKOCYTE ESTERASE, URINE NEGATIVE (NEGATIVE); NITRITE,URINE NEGATIVE (NEGATIVE); OCCULT BLOOD,URINE NEGATIVE (NEGATIVE); PROTEIN,URINE NEGATIVE (NEGATIVE); UROBILINOGEN,URINE 0.2 (NORMAL) E.U./dL (NORMAL)
[2023-06-03 10:23] LABS: CLARITY,URINE CLEAR (CLEAR)
[2023-06-03 10:29] LABS: CREATININE,URINE 100.8 mg/dL; MICROALBUM/CREATININE RATIO,UR 42.7 ug/mg (<30.0); MICROALBUMIN,URINE 4.3 mg/dL (0-300.0)
[2023-06-03 10:33] LABS: RBC,URINE 0-5 /HPF (0-5); WBC,URINE 0-3 /HPF (0-5)
[2023-06-03 10:34] LABS: BACTERIA,URINE Few /HPF (None Seen); SQUAMOUS EPITHELIAL CELL,UR FEW Squamous (<= Few)
[2023-06-03 10:35] LABS: CREATININE 24 HOUR,URINE 1612.8 mg/kg/24 (11-26)
[2023-06-07 13:11] LABS: ALDOSTERONE 14.8 ng/dL (0.0-30.0); ALDOSTERONE/RENIN RATIO 3.3 (0.0-30.0); RENIN ACTIVITY PLASMA 4.529 ng/mL/hr (0.167-5.380)
== END 2023-06-03 09:59 | disposition home or self-care (01) ==
LOC: LAB 09:58
PROVIDERS: ATTEND Internal Medicine
DX: I10 Essential (primary) hypertension (principal); R79.9 Abnormal finding of blood chemistry, unspecified; N13.722 Vesicoureteral-reflux with reflux nephropathy without hydroureter, bilateral; E87.6 Hypokalemia
CPT/HCPCS: 81001; 81599; 82043; 82088; 82570; 82610; 84244; 87086

== ENCOUNTER 2023-08-19 11:50 | Outpatient (CLI) | payer OTHER | END 2023-08-19 11:51 | disposition home or self-care (01) | LOC: LAB 11:50 | PROVIDERS: ATTEND Nurse Practitioner | DX: O26.20 Pregnancy care for patient with recurrent pregnancy loss, unspecified trimester (principal) | CPT/HCPCS: 81241; 81243; 81244; 81599; 85598; 85610; 85613; 85670; 85730; 86146; 86147 ==

== ENCOUNTER 2023-09-03 17:58 | Outpatient (CLI) | payer OTHER | END 2023-09-03 17:59 | disposition critical access hospital (66) | LOC: EMS 17:58 | DX: R20.2 Paresthesia of skin (principal); W86.0XXA Exposure to domestic wiring and appliances, initial encounter; Y92.000 Kitchen of unspecified non-institutional (private) residence as the place of occurrence of the external cause | CPT/HCPCS: A0425; A0429 ==

== ENCOUNTER 2023-09-03 18:18 | Emergency (ER) | payer OTHER ==
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
[2023-09-03 18:30] VITALS: O2SAT 98
[2023-09-03 18:57] VITALS: BP 130/88
== END 2023-09-03 18:50 | disposition home or self-care (01) ==
LOC: EDUNIT# → ED 18:18
DX: T75.4XXA Electrocution, initial encounter (principal); W86.0XXA Exposure to domestic wiring and appliances, initial encounter; Y93.89 Activity, other specified
CPT/HCPCS: 93005; 99282; 99283